=== PATIENT | female | born 1930 | race Hispanic/Latino ===

== ENCOUNTER 2017-11-26 12:23 | Emergency (ER) | payer MEDICARE, MEDICAID ==
--- NOTE | 2017-11-26 13:33 | RAD ---
RIGHT HIP 2 VIEWS: HISTORY: Injury, fall, right hip pain. FINDINGS/IMPRESSION: No fracture or dislocation is identified. POS: JAY
[2017-11-26] MEDS ORDERED: traMADol HCl 50 MG TAB ONE (15:52)
== END 2017-11-26 16:22 | disposition home or self-care (01) ==
LOC: ERS 12:23
DX: S70.01XA Contusion of right hip, initial encounter (principal); K21.9 Gastro-esophageal reflux disease without esophagitis; D50.0 Iron deficiency anemia secondary to blood loss (chronic); I10 Essential (primary) hypertension; F41.9 Anxiety disorder, unspecified; F32.9 Major depressive disorder, single episode, unspecified; I48.91 Unspecified atrial fibrillation; E11.39 Type 2 diabetes mellitus with other diabetic ophthalmic complication; H40.9 Unspecified glaucoma; M81.0 Age-related osteoporosis without current pathological fracture; W07.XXXA Fall from chair, initial encounter

== ENCOUNTER 2018-01-14 01:16 | Inpatient (IN) | payer MEDICARE, OTHER ==
[2018-01-14 02:11] LABS: #Eosinphils 0.2 thou/uL (0.0-0.7); #Lymphocytes 1.4 thou/uL (1.20-3.40); #Monocytes 0.3 thou/uL (0.11-0.59); %Basophils 0.2 % (0.0-1.0); %Eosinophils 2.2 % (0.0-10.0); %Lymphocytes 17.8 % (21.0-51.0); %Neutrophils 75.8 % (42.0-75.0); Hemoglobin 11.1 g/dL (12.0-16.0); Mean Corpuscular HGB CONC 34.6 g/dL (32.0-36.0); Mean Corpuscular Hemoglobin 33.6 pg (27.0-31.0); Mean Corpuscular Volume 97.1 fl (81.0-99.0); Mean Platelet Volume 8.1 fL (7.4-10.4); Platelet Count 218 thou/uL (130-400); RBC Distribution Width 13.9 % (11.5-14.5); Red Blood Cell (RBC) Count 3.31 mill/uL (4.20-5.40); White Blood Cell (WBC) Count 7.9 thou/uL (4.8-10.8)
[2018-01-14 02:25] LABS: ALT (SGPT) 14 U/L (8-55); AST (SGOT) 21 U/L (5-34); Albumin 3.7 g/dL (3.4-4.8); Alkaline Phosphatase 140 U/L (40-150); Anion Gap 12 mmol/L (10-20); BUN (Urea Nitrogen) 20 mg/dL (9.8-20.1); Bilirubin, Total 0.6 mg/dL (0.2-1.2); CK (CPK) 57 U/L (29-168); Calc. Creatinine Clearance 0 mL/min (70-130); Calcium 9.5 mg/dL (7.8-10.44); Carbon Dioxide 28 mmol/L (23-31); Chloride 93 mmol/L (98-107); Estimated GFR-MDRD 86; Globulin 3.7 g/dL (2.4-3.5); Glucose 126 mg/dL (83-110); Protein, Total 7.4 g/dL (6.0-8.3); Sodium 129 mmol/L (136-145)
[2018-01-14 02:28] LABS: CKMB 1.3 ng/mL (0-6.6)
[2018-01-14] MEDS ORDERED: Piperacillin/Tazobactam 4.5 GM in Sodium Chloride 0.9% 100 ML IVPB SCH (03:30)
[2018-01-14] MEDS ORDERED: Acetaminophen 325 MG TAB ONE (04:56)
[2018-01-14] MEDS ORDERED: Dextrose 50% Abboject 50 ML SYRINGE SLOW IVP PRN (05:01)
[2018-01-14] MEDS ORDERED: HYDROcodone/Acetaminophen 7.5/325 mg Tablet PO PRN (05:01)
[2018-01-14] MEDS ORDERED: Ondansetron ODT 4 MG TAB PO PRN (05:01)
[2018-01-14] MEDS ORDERED: Dextrose 5% in Water 1,000 ML IV PRN (05:01)
[2018-01-14] MEDS ORDERED: HumaLOG 300 UNITS/3 ML VIAL SC PRN (05:01)
--- NOTE | 2018-01-14 05:50 | HP ---
CHIEF COMPLAINT: Fevers. HISTORY OF PRESENT ILLNESS: The patient is an 87-year-old female who currently resides at a [facility] due to her debility, she presents after being found to have a fever of 101 and 102 by the [facility] staff. The patient also complained of a cough with some sputum production, otherwise she denied an y other symptoms other than fever and productive cough. She does not have any shortness of breath or chest pain. PAST MEDICAL HISTORY: Patient is significant for type 2 diabetes and hyperlipidemia as well as bladd er incontinence. PAST SURGICAL HISTORY: Patient has had prior cholecystectomy as well as a bladder sling procedure. SOCIAL HISTORY: Negative tobacco or alcohol use. She currently lives at [facility]. REVIEW OF SYSTEMS: Please see HPI. Rest of 14-point review of system is negative. FAMILY HISTORY: Reviewed and noncontributory. LABORATORY DATA AND X-RAY FINDINGS: CBC: White count 7.9, H&H is 11 and 32 with platelet of 218. S odium is 129, potassium 4.0, chloride 93, bicarbonate 28, BUN 20, creatinine 0.6. Chest x-ray that s hows some bilateral lower lobe infiltrates. PHYSICAL EXAMINATION: VITAL SIGNS: Blood pressure 118/62, pulse 105, respirations 20. The patient satting 99% on room air , T-max is 98. GENERAL: Alert and oriented x3, no acute distress. HEENT: Pupils equal, round, react to light and accommodation. Extraocular muscles intact. TMs are clear. No erythema in throat. NECK: No JVD, no lymphadenopathy. CARDIOVASCULAR: Regular rate and rhythm. LUNGS: With very faint wheeze at the bases. ABDOMEN: Positive bowel sounds, soft, nontender, nondistended. EXTREMITIES: No clubbing, cyanosis or edema. ASSESSMENT AND PLAN: 1. Hospital-acquired pneumonia. Continue on Zosyn per guidelines. Continue with symptom control. 2. Type 2 diabetes. Continue on metformin and insulin sliding scale. 3. Hyperlipidemia. Continue Lipitor. 4. Bladder spasms. Continue on oxybutynin. 5. Code status: The patient is full code.
[2018-01-14 06:24] VITALS: BMI 25.3
[2018-01-14] MEDS: Aspirin 81 mg Enteric Coated Tablet PO SCH (08:04)
[2018-01-14] MEDS: Sucralfate 1 GM TAB PO SCH ×4 (08:04→21:07)
[2018-01-14] MEDS: metFORMIN 500 MG TAB PO SCH ×2 (08:05→17:23)
[2018-01-14] MEDS: Lorazepam 0.5 MG TAB PO SCH ×2 (08:05→21:07)
[2018-01-14] MEDS: guaiFENesin ER 600 MG TAB PO SCH ×2 (08:05→21:07)
[2018-01-14] MEDS: Oxybutynin ER 5 MG TAB PO SCH (08:05)
[2018-01-14] MEDS: Enoxaparin Sodium 30 MG/0.3 ML SYRINGE SC SCH (08:15)
--- NOTE | 2018-01-14 09:01 | RAD ---
CHEST 1 VIEW: HISTORY: Dyspnea. Fever. COMPARISON: 12/13/16. FINDINGS: The cardiac silhouette is magnified by projection. Pulmonary vasculature is upper limits of normal. Coarsened interstitial markings throughout each lung have progressed since the prior study. Right h emidiaphragm remains slightly elevated. Mediastinum is midline. No evidence of pneumothorax. IMPRESSION: Worsening bilateral interstitial disease, favored to represent a chronic process. POS: [facility]
[2018-01-14] MEDS: Piperacillin/Tazobactam 4.5 GM in Sodium Chloride 0.9% 100 ML IVPB SCH ×3 (12:16→21:13)
[2018-01-14] MEDS: Acetaminophen 325 MG TAB PO PRN (18:38)
[2018-01-14] MEDS: Atorvastatin Calcium 10 MG TAB PO SCH (21:07)
[2018-01-15] MEDS: Piperacillin/Tazobactam 4.5 GM in Sodium Chloride 0.9% 100 ML IVPB SCH ×4 (04:14→21:05)
[2018-01-15 05:55] LABS: #Eosinphils 0.2 thou/uL (0.0-0.7); #Lymphocytes 0.7 thou/uL (1.20-3.40); #Monocytes 0.4 thou/uL (0.11-0.59); #Neutrophils 5.3 thou/uL (1.40-6.50); %Basophils 0.2 % (0.0-1.0); %Eosinophils 3.7 % (0.0-10.0); %Lymphocytes 9.8 % (21.0-51.0); %Monocytes 5.6 % (0.0-10.0); %Neutrophils 80.7 % (42.0-75.0); Mean Corpuscular HGB CONC 32.1 g/dL (32.0-36.0); Mean Corpuscular Hemoglobin 31.4 pg (27.0-31.0); Mean Corpuscular Volume 97.8 fl (81.0-99.0); Platelet Count 223 thou/uL (130-400); RBC Distribution Width 13.7 % (11.5-14.5); Red Blood Cell (RBC) Count 3.51 mill/uL (4.20-5.40); White Blood Cell (WBC) Count 6.6 thou/uL (4.8-10.8)
[2018-01-15 06:26] LABS: Anion Gap 13 mmol/L (10-20); BUN (Urea Nitrogen) 13 mg/dL (9.8-20.1); Calc. Creatinine Clearance 60 mL/min (70-130); Calcium 9.1 mg/dL (7.8-10.44); Carbon Dioxide 24 mmol/L (23-31); Chloride 97 mmol/L (98-107); Estimated GFR-MDRD Greater than 90; Glucose 89 mg/dL (83-110); Potassium 3.9 mmol/L (3.5-5.1); Sodium 130 mmol/L (136-145)
[2018-01-15] MEDS: metFORMIN 500 MG TAB PO SCH ×2 (10:20→16:59)
[2018-01-15] MEDS: Lorazepam 0.5 MG TAB PO SCH ×2 (10:20→21:06)
[2018-01-15] MEDS: Sucralfate 1 GM TAB PO SCH ×4 (10:20→21:06)
[2018-01-15] MEDS: guaiFENesin ER 600 MG TAB PO SCH ×2 (10:20→21:06)
[2018-01-15] MEDS: Aspirin 81 mg Enteric Coated Tablet PO SCH (10:21)
[2018-01-15] MEDS: Enoxaparin Sodium 30 MG/0.3 ML SYRINGE SC SCH (10:21)
[2018-01-15] MEDS: Oxybutynin ER 5 MG TAB PO SCH (12:38)
--- NOTE | 2018-01-15 15:56 | PDOC.PN ---
- Subjective Encounter Start Date: 01/15/18 Encounter Start Time: 16:34 Subjective: No new complaints -: No active events overnight. - Objective Resuscitation Status: Resuscitation Status FULL:Full Resuscitation MAR Reviewed: Yes Vital Signs & Weight: Vital Signs (12 hours) Temp Pulse Resp BP Pulse Ox 01/15/18 12:00 97.8 F 70 18 135/75 95 01/15/18 08:00 98.0 F 87 20 97 01/15/18 07:45 98.0 F 87 20 136/78 97 Weight Weight 121 lb 4.068 oz I&O: 01/14/18 01/15/18 01/16/18 06:59 06:59 06:59 Intake Total 1190 Balance 1190 Result Diagrams: 01/15/18 05:13 01/15/18 05:13 Additional Labs: Accuchecks 01/15/18 01/15/18 01/15/18 11:42 05:44 02:18 POC Glucose 106 94 100 01/14/18 16:27 POC Glucose 107 Phys Exam - Physical Examination Constitutional: NAD HEENT: PERRLA, moist MMs, sclera anicteric Neck: supple, full ROM Respiratory: no wheezing, no rales, no rhonchi, clear to auscultation bilateral Cardiovascular: RRR, no significant murmur, no rub Gastrointestinal: soft, non-tender, no distention, positive bowel sounds Musculoskeletal: no edema, pulses present Neurological: non-focal, moves all 4 limbs Psychiatric: normal affect Deviation from normal: AO x 2 (person and place) Skin: no rash, normal turgor Dx/Plan (1) Pneumonia Code(s): J18.9 - PNEUMONIA, UNSPECIFIED ORGANISM Status: Acute Qualifiers: Pneumonia type: due to unspecified organism Laterality: bilateral Lung location: lower lobe of lung Qualified Code(s): J18.9 - Pneumonia, unspecified organism Comment: On antibiotics. Pt has chronic fibrotic interstitial disease Will continue ABx and monitor. Will need pulm f/u (2) Chronic respiratory failure Code(s): J96.10 - CHRONIC RESPIRATORY FAILURE, UNSP W HYPOXIA OR HYPERCAPNIA Status: Chronic Qualifiers: Respiratory failure complication: hypoxia Plan: As above (3) DM type 2 (diabetes mellitus, type 2) Status: Chronic Qualifiers: Diabetes mellitus complication status: without complication Diabetes mellitus intermission coordinator insulin use: without longterm use Qualified Code(s): E11.9 - Type 2 diabetes mellitus without complications Comment: Controlled and at goal. (4) Hypertension Code(s): I10 - ESSENTIAL (PRIMARY) HYPERTENSION Status: Chronic Qualifiers: Hypertension type: essential hypertension Comment: At goal. - Plan cont current plan of care, continue antibiotics, DVT proph w/lovenox * .
[2018-01-15] MEDS: Atorvastatin Calcium 10 MG TAB PO SCH (21:06)
[2018-01-15] MEDS: HYDROcodone/Acetaminophen 5/325 mg Tablet PO PRN (21:13)
[2018-01-16] MEDS: Piperacillin/Tazobactam 4.5 GM in Sodium Chloride 0.9% 100 ML IVPB SCH ×4 (03:20→20:56)
[2018-01-16 05:45] LABS: #Eosinphils 0.4 thou/uL (0.0-0.7); #Lymphocytes 0.9 thou/uL (1.20-3.40); #Monocytes 0.4 thou/uL (0.11-0.59); #Neutrophils 3.6 thou/uL (1.40-6.50); %Basophils 0.2 % (0.0-1.0); %Eosinophils 7.7 % (0.0-10.0); %Lymphocytes 17.4 % (21.0-51.0); %Monocytes 6.9 % (0.0-10.0); %Neutrophils 67.8 % (42.0-75.0); Mean Corpuscular HGB CONC 32.5 g/dL (32.0-36.0); Mean Corpuscular Hemoglobin 31.5 pg (27.0-31.0); Mean Platelet Volume 7.7 fL (7.4-10.4); Platelet Count 229 thou/uL (130-400); RBC Distribution Width 13.6 % (11.5-14.5); White Blood Cell (WBC) Count 5.4 thou/uL (4.8-10.8)
[2018-01-16 06:28] LABS: Anion Gap 9 mmol/L (10-20); BUN (Urea Nitrogen) 16 mg/dL (9.8-20.1); Calc. Creatinine Clearance 55 mL/min (70-130); Calcium 9.1 mg/dL (7.8-10.44); Carbon Dioxide 29 mmol/L (23-31); Chloride 94 mmol/L (98-107); Estimated GFR-MDRD 89; Glucose 84 mg/dL (83-110); Potassium 3.8 mmol/L (3.5-5.1); Sodium 128 mmol/L (136-145)
[2018-01-16] MEDS: Lorazepam 0.5 MG TAB PO SCH ×2 (09:34→20:57)
[2018-01-16] MEDS: guaiFENesin ER 600 MG TAB PO SCH ×2 (09:34→20:57)
[2018-01-16] MEDS: Oxybutynin ER 5 MG TAB PO SCH (09:34)
[2018-01-16] MEDS: Sucralfate 1 GM TAB PO SCH ×4 (09:34→20:57)
[2018-01-16] MEDS: metFORMIN 500 MG TAB PO SCH ×2 (09:34→16:08)
[2018-01-16] MEDS: Aspirin 81 mg Enteric Coated Tablet PO SCH (09:34)
[2018-01-16] MEDS: Enoxaparin Sodium 30 MG/0.3 ML SYRINGE SC SCH (09:35)
--- NOTE | 2018-01-16 11:26 | PDOC.PN ---
- Subjective Encounter Start Date: 01/16/18 Encounter Start Time: 11:29 Subjective: No acute events overnight -: No complaints today- breathing better. - Objective Resuscitation Status: Resuscitation Status FULL:Full Resuscitation MAR Reviewed: Yes Vital Signs & Weight: Vital Signs (12 hours) Temp Pulse Resp BP Pulse Ox 01/16/18 07:54 97.8 F 85 20 96 01/16/18 07:53 97.8 F 85 20 135/69 96 Weight Weight 121 lb 4.068 oz I&O: 01/15/18 01/16/18 01/17/18 06:59 06:59 06:59 Intake Total 1190 1200 Balance 1190 1200 Result Diagrams: 01/16/18 05:17 01/16/18 05:17 Additional Labs: Accuchecks 01/16/18 01/15/18 01/15/18 04:59 20:11 16:06 POC Glucose 103 101 103 01/15/18 11:42 POC Glucose 106 Phys Exam - Physical Examination Constitutional: NAD HEENT: PERRLA, moist MMs, sclera anicteric Respiratory: no wheezing, clear to auscultation bilateral bronchial BS b/l Cardiovascular: RRR, no significant murmur, no rub Gastrointestinal: soft, non-tender, no distention, positive bowel sounds Musculoskeletal: no edema, pulses present Psychiatric: normal affect Deviation from normal: AO x 2 Skin: no rash, normal turgor Dx/Plan (1) Pneumonia Code(s): J18.9 - PNEUMONIA, UNSPECIFIED ORGANISM Status: Acute Qualifiers: Pneumonia type: due to unspecified organism Laterality: bilateral Lung location: lower lobe of lung Qualified Code(s): J18.9 - Pneumonia, unspecified organism Comment: Imptoving Remains on antibiotics pending blood cx results. Negative so far. Pt has chronic fibrotic interstitial disease Will continue ABx and monitor. Will need pulm f/u (2) Chronic respiratory failure Code(s): J96.10 - CHRONIC RESPIRATORY FAILURE, UNSP W HYPOXIA OR HYPERCAPNIA Status: Chronic Qualifiers: Respiratory failure complication: hypoxia Comment: Stable. (3) DM type 2 (diabetes mellitus, type 2) Status: Chronic Qualifiers: Diabetes mellitus complication status: without complication Diabetes mellitus terminal manager insulin use: without terminal manager use Qualified Code(s): E11.9 - Type 2 diabetes mellitus without complications Comment: Controlled and at goal. (4) Hypertension Code(s): I10 - ESSENTIAL (PRIMARY) HYPERTENSION Status: Chronic Qualifiers: Hypertension type: essential hypertension Comment: At goal. - Plan cont current plan of care, continue antibiotics Likely d/c to NH tomorrow. * .
--- NOTE | 2018-01-16 14:26 | PQF ---
YASMEENOSEAS OLADIPO [id number] [id number] CLINICAL DOCUMENTATION IMPROVEMENT CLARIFICATION FORM: ICD-10 Updated PLEASE DO AN ADDENDUM TO THE PROGRESS NOTE WITH ANY DOCUMENTATION UPDATES OR ADDITIONS AND CARRY THROUGH TO DC SUMMARY. THANK YOU. DATE: 01-16-18 ATTN: DR. MORGAN Please exercise your independent, professional judgment in responding to the clarification form. Clinical indicators are provided on the bottom of this form for your review Please check appropriate box(s): [ x ] Empirically treating Gram Negative Pneumonia [ ] Empirically treating Anaerobic Pneumonia [ ] Pneumonia secondary to (specify organism / underlying disease) [ ] Simple Pneumonia (community acquired - nosocomial) [ ] Pneumonia of unknown etiology [ ] Other diagnosis [ ] Unable to determine For continuity of documentation, please document condition throughout progress notes and discharge summary. Thank You. CLINICAL INDICATORS - SIGNS / SYMPTOMS / LABS H&P: TEMP 102 AT NH; COUGH; [facility]-ACQUIRED PNA PN 2-: LOWER LOBE PNA - UNSP ORGANISM; RISK FACTORS H&P: LIVES IN NH PN 2-19 CHRONIC HYPOXIC RESP FAILURE W/ CHRONIC FIBROTIC INTERSTITIAL DX TREATMENTS: ER: LEVAQUIN IV 01-14 MAR: ZOSYN 01-14 / 01-15 / 01-16 THANK YOU, CHYNA (This form is maintained as a part of the permanent medical record) 2014 [employer]. All Rights Reserved Chyna Martinez RN, BS [email or web address] [facility]
[2018-01-16] MEDS: HYDROcodone/Acetaminophen 5/325 mg Tablet PO PRN (17:14)
[2018-01-16] MEDS: Atorvastatin Calcium 10 MG TAB PO SCH (20:57)
[2018-01-16] MEDS: Acetaminophen 325 MG TAB PO PRN (20:57)
[2018-01-17] MEDS: Piperacillin/Tazobactam 4.5 GM in Sodium Chloride 0.9% 100 ML IVPB SCH ×2 (04:05→09:20)
[2018-01-17 04:41] LABS: #Basophils 0.1 thou/uL (0.0-0.2); #Eosinphils 0.5 thou/uL (0.0-0.7); #Lymphocytes 1.1 thou/uL (1.20-3.40); #Monocytes 0.5 thou/uL (0.11-0.59); #Neutrophils 3.8 thou/uL (1.40-6.50); %Basophils 0.9 % (0.0-1.0); %Eosinophils 7.8 % (0.0-10.0); %Lymphocytes 18.7 % (21.0-51.0); %Monocytes 7.9 % (0.0-10.0); %Neutrophils 64.7 % (42.0-75.0); Hemoglobin 11.5 g/dL (12.0-16.0); Mean Corpuscular HGB CONC 34.5 g/dL (32.0-36.0); Mean Corpuscular Hemoglobin 33.4 pg (27.0-31.0); Mean Corpuscular Volume 96.7 fl (81.0-99.0); Mean Platelet Volume 7.9 fL (7.4-10.4); Platelet Count 244 thou/uL (130-400); RBC Distribution Width 13.4 % (11.5-14.5); Red Blood Cell (RBC) Count 3.46 mill/uL (4.20-5.40); White Blood Cell (WBC) Count 5.8 thou/uL (4.8-10.8)
[2018-01-17 04:51] LABS: Anion Gap 13 mmol/L (10-20); BUN (Urea Nitrogen) 16 mg/dL (9.8-20.1); Calc. Creatinine Clearance 57 mL/min (70-130); Calcium 9.3 mg/dL (7.8-10.44); Carbon Dioxide 27 mmol/L (23-31); Chloride 92 mmol/L (98-107); Estimated GFR-MDRD Greater than 90; Glucose 90 mg/dL (83-110); Potassium 3.8 mmol/L (3.5-5.1); Sodium 128 mmol/L (136-145)
[2018-01-17] MEDS: Lorazepam 0.5 MG TAB PO SCH (09:08)
[2018-01-17] MEDS: Enoxaparin Sodium 30 MG/0.3 ML SYRINGE SC SCH (09:08)
[2018-01-17] MEDS: Oxybutynin ER 5 MG TAB PO SCH (09:08)
[2018-01-17] MEDS: Sucralfate 1 GM TAB PO SCH (09:08)
[2018-01-17] MEDS: Aspirin 81 mg Enteric Coated Tablet PO SCH (09:08)
[2018-01-17] MEDS: guaiFENesin ER 600 MG TAB PO SCH (09:08)
[2018-01-17] MEDS: metFORMIN 500 MG TAB PO SCH (09:08)
[2018-01-17 11:33] VITALS: BP 143/63; TEMP 97.6
--- NOTE | 2018-01-17 22:28 | DIS ---
DATE OF ADMISSION: 01/14/2018 DATE OF DISCHARGE: 01/17/2018 DISCHARGE DIAGNOSES: Pneumonia, type 2 diabetes mellitus, hyperlipidemia, bladder spasms, chronic re spiratory failure, and hypertension. HISTORY OF PRESENT ILLNESS/HOSPITAL COURSE: An 87-year-old senior living resident, who was brought to the hospital after she had a fever of 101 and 102 degrees Fahrenheit by nursing staff. She also had a cough with some sputum production. Otherwise, denied any other symptoms other than fever and prod uctive cough. She did not have any shortness of breath or chest pain. Lab showed a white count of 7 .9, hemoglobin was 11, and platelets 218. Electrolytes were reliably unremarkable. Chest x-ray was done and showed worsening bilateral interstitial disease, few also represented chronic process. The patient, of note has chronic fibrotic interstitial disease. She was admitted for possible gram negat tony pneumonia due to healthcare-associated pneumonia. She was started on broad-spectrum antibiotics and blood cultures were taken. Blood cultures were negative. Influenza A and B antigens were also n egative. She improved with treatment and was saturating well on room air. Blood cultures remained n egative throughout her stay, and she was discharged on p.o. Keflex to her senior living. DISCHARGE MEDICATIONS: Cephalexin 250 mg twice daily, oxybutynin chloride 5 mg daily, alendronate so dium 35 mg oral every week, loratadine 10 mg daily, latanoprost 1 drop in each eye at bedtime, metfor min 500 mg twice a day with meals, magnesium hydroxide/aluminum hydroxide/simethicone 10-20 mL orally twice a day as needed, Mucinex 600 mg twice a day, ferrous sulfate 325 mg daily, ascorbic acid 500 m g daily, multivitamin 1 tablet daily, acetaminophen 60 mg every 4 hours as needed for fever, headache , or pain; aspirin 81 mg daily, atorvastatin 10 mg daily, diltiazem 180 mg daily, docusate 100 mg chaitanya ly, calcium carbonate 500 mg 4 times a day as needed for indigestion, pantoprazole 40 mg daily, sucra lfate 1 gram oral 4 times daily, ipratropium/albuterol sulfate 3 mL nebulizer q.4 hours as needed for shortness of breath/wheezing, Humalog 100 units sliding scale for hyperglycemia, ergocalciferol 50,0 00 units oral every week, lorazepam 0.25 mg twice daily, estradiol 1 gram vaginally 3 times a week, f amotidine 20 mg oral daily, magnesium 2250 mg oral twice a day, polyethylene glycol 17 grams oral chaitanya ly, acetaminophen with codeine 1 tablet 3 times a day as needed for pain, loperamide 1 mg daily. PHYSICAL EXAMINATION: She was examined on the day of discharge. VITAL SIGNS: Temperature 97.6 degree Fahrenheit, pulse 83, respiratory rate 16, oxygen saturation 95 % on room air, blood pressure 143/63. GENERAL: Not in acute distress, sitting comfortably in bed. HEENT: PERRLA. Moist mucous membranes. Sclerae are anicteric, not pale. RESPIRATORY: No wheezing, rales, or rhonchi. LUNGS: Bronchial breath sounds bilaterally. CARDIOVASCULAR: Regular rate and rhythm. No significant murmurs, rubs, or gallops. GASTROINTESTINAL: Soft, nontender, nondistended, positive bowel sounds. MUSCULOSKELETAL: No edema or pulses present. PSYCHIATRIC: Normal affect and mood. NEUROLOGIC: Alert and oriented to person and place. SKIN: Warm, dry, well-perfused. No rashes or lesions. LABORATORY DATA: WBC 5.8, hemoglobin 11.5, platelets 244. Sodium 128, potassium 3.8, chloride 92, c arbon dioxide 27, anion gap 13, BUN 16, creatinine 0.6, glucose 90, calcium 9.3. Imaging as noted in HPI/hospital course. CONSULTATIONS: None. CONDITION AT DISCHARGE: Stable and improved. PROCEDURES: None. DIET: Heart healthy, diabetic. CARE GOALS: To follow up with primary care physician within 1 week of discharge for repeat labs. ACTIVITY: To resume as tolerated. TIME OF DISCHARGE: Discharge took 65 minutes including chart review and documentation.
--- NOTE | 2018-02-10 14:22 | EKG ---
Test Reason : EMERGENCY EXAM Blood Pressure : / mmHG Vent. Rate : 091 BPM Atrial Rate : 086 BPM P-R Int : 000 ms QRS Dur : 102 ms QT Int : 334 ms P-R-T Axes : 000 -30 139 degrees QTc Int : 410 ms Atrial fibrillation with premature ventricular or aberrantly conducted complexes Left axis deviation Septal infarct , age undetermined Abnormal ECG Confirmed by JERRELL CLIFTON M.D. ([id number]), newspaper photo editor CIARRA LORENZO ([id number]) on 02/10/2018 2:21:24 PM Referred By: Confirmed By:JERRELL CLIFTON M.D.
== END 2018-01-17 11:23 | DRG 178 ==
LOC: ERS 01:16 → T4-B 04:00
PROVIDERS: ADMIT Hospitalist; ATTEND Hospitalist
DX: J15.6 Pneumonia due to other Gram-negative bacteria (principal); J96.11 Chronic respiratory failure with hypoxia; J84.10 Pulmonary fibrosis, unspecified; E11.9 Type 2 diabetes mellitus without complications; I10 Essential (primary) hypertension; E78.5 Hyperlipidemia, unspecified; N32.89 Other specified disorders of bladder
CPT/HCPCS: 36415; 36416; 71045; 80048; 80053; 82553; 83605; 83880; 84484; 85025; 87040; 87804; 93005; 96365; 96367; J1650; J1956; J2543; J7050

== ENCOUNTER 2018-02-21 17:40 | Observation (INO) | payer MEDICARE, MEDICAID ==
[2018-02-21 18:29] LABS: #Eosinphils 0.4 thou/uL (0.0-0.7); #Lymphocytes 0.9 thou/uL (1.20-3.40); #Monocytes 0.3 thou/uL (0.11-0.59); %Basophils 0.5 % (0.0-1.0); %Eosinophils 7.1 % (0.0-10.0); %Lymphocytes 15.5 % (21.0-51.0); %Monocytes 5.8 % (0.0-10.0); %Neutrophils 71.1 % (42.0-75.0); Hemoglobin 12.4 g/dL (12.0-16.0); Mean Corpuscular HGB CONC 33.7 g/dL (32.0-36.0); Mean Corpuscular Volume 97.8 fl (81.0-99.0); Mean Platelet Volume 7.9 fL (7.4-10.4); Platelet Count 247 thou/uL (130-400); RBC Distribution Width 13.6 % (11.5-14.5); Red Blood Cell (RBC) Count 3.75 mill/uL (4.20-5.40); White Blood Cell (WBC) Count 5.7 thou/uL (4.8-10.8)
[2018-02-21 18:38] LABS: ALT (SGPT) 14 U/L (8-55); AST (SGOT) 21 U/L (5-34); Albumin 3.8 g/dL (3.4-4.8); Alkaline Phosphatase 124 U/L (40-150); Anion Gap 14 mmol/L (10-20); BUN (Urea Nitrogen) 20 mg/dL (9.8-20.1); Bilirubin, Total 0.4 mg/dL (0.2-1.2); CK (CPK) 36 U/L (29-168); Calc. Creatinine Clearance 0 mL/min (70-130); Calcium 9.8 mg/dL (7.8-10.44); Carbon Dioxide 26 mmol/L (23-31); Chloride 95 mmol/L (98-107); Estimated GFR-MDRD 82; Globulin 4.2 g/dL (2.4-3.5); Glucose 103 mg/dL (83-110); Potassium 4.6 mmol/L (3.5-5.1); Sodium 130 mmol/L (136-145)
[2018-02-21 18:43] LABS: CKMB 1.3 ng/mL (0-6.6); Troponin I 0.019 ng/mL (< 0.028)
--- NOTE | 2018-02-21 18:49 | RAD ---
SINGLE VIEW OF THE CHEST: 02/21/18 COMPARISON: 01/14/18 HISTORY: Chest pain. FINDINGS: Single view of the chest shows a cardiomediastinal silhouette which is upper limits of normal in size . There are chronic increased interstitial lung markings. There is stable elevation of the right radhika diaphragm. There is no evidence of consolidation, mass or pleural effusion. IMPRESSION: Stable chronic interstitial lung disease without acute cardiopulmonary process. POS: [facility]
[2018-02-21] MEDS ORDERED: Morphine 4 MG/ML VIAL ONE (19:17)
[2018-02-21] MEDS ORDERED: Ondansetron HCl/PF 4 MG/2 ML Vial ONE (19:18)
[2018-02-21] MEDS ORDERED: Aspirin 325 MG TAB ONE (19:18)
[2018-02-21] MEDS ORDERED: HYDROcodone/Acetaminophen 5/325 mg Tablet ONE (21:52)
[2018-02-21 22:43] LABS: Troponin I 0.016 ng/mL (< 0.028)
[2018-02-21] MEDS ORDERED: Dextrose 50% Abboject 50 ML SYRINGE SLOW IVP PRN (23:23)
[2018-02-21] MEDS ORDERED: hydrALAZINE 20 MG/ML VIAL SLOW IVP PRN (23:23)
[2018-02-21] MEDS ORDERED: HumaLOG 300 UNITS/3 ML VIAL SC PRN ×2 (23:23)
[2018-02-21] MEDS ORDERED: Ondansetron HCl/PF 4 MG/2 ML Vial IVP PRN (23:23)
[2018-02-21] MEDS ORDERED: Ondansetron ODT 4 MG TAB PO PRN (23:23)
[2018-02-21] MEDS ORDERED: Dextrose 5% in Water 1,000 ML IV PRN (23:23)
[2018-02-21] MEDS ORDERED: cloNIDine 0.1 MG TAB PO PRN (23:23)
[2018-02-21] MEDS ORDERED: Acetaminophen 500 MG TAB PO PRN (23:23)
[2018-02-22 02:01] LABS: Troponin I 0.025 ng/mL (< 0.028)
[2018-02-22 02:58] VITALS: BMI 21.9
[2018-02-22] MEDS: HYDROcodone/Acetaminophen 5/325 mg Tablet PO PRN ×2 (04:00→12:34)
--- NOTE | 2018-02-22 04:42 | HP ---
DATE OF ADMISSION: 02/21/2018 PRIMARY CARE PROVIDER: Dr. Camacho. CHIEF COMPLAINT: Chest and back pain. HISTORY OF PRESENT ILLNESS: This is an 87-year-old female, who presents from [facility] where she has been a current resident for the last 7 years. The patient complai ns of left upper shoulder, back and anterior chest pain when taking a breath, turning or coughing. T he patient states she has a pain patch on her back that is changed once a day for some relief of her symptoms. The patient was notably admitted to [facility] recently from 2017 through 01/17/2018 for questionable bilateral pneumonia as well as chronic interstitial lung dis ease. The patient was discharged home on Keflex 250 mg twice daily and given general pulmonary suppo rtive measures. The patient admits to residual cough, which has improved with supportive treatment. The patient denied any specific increasing cough, fever, chills or purulent sputum. The patient sta bianca she has some difficulty ambulating after a stroke and generally mobilizes in a wheelchair. The p atient localizes pain in the shoulder region as well as upper back, rated initially at 6/10, currentl y 3/10. The patient states the pain is worse with moving, coughing or turning her torso[facility] general evaluation including a screening metabolic survey with tro ponin I negative x2. The patient denies any strong history of coronary artery disease or previous in tervention for coronary artery disease. The patient currently is comfortable lying on the gurney in the emergency room. PAST MEDICAL HISTORY: 1. History of chronic respiratory failure with hypoxemia without chronic oxygen therapy. 2. Status post recent suspected community-acquired pneumonia. 3. Question of chronic interstitial lung disease. 4. History of aspiration pneumonia. 5. History of Dunbar's palsy. 6. Hypertension. 7. Osteoarthritis. 8. 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 9. Diabetes mellitus, type 2. 10. Gastroesophageal reflux disease. 11. History of glaucoma. 12. Nonambulatory status. 13. History of dysphagia, status post cerebrovascular accident. PAST SURGICAL HISTORY: 1. Status post cholecystectomy. 2. Status post-bladder suspension. CURRENT MEDICATIONS: 1. Tylenol 650 mg 1 tab p.o. q.6 hours p.r.n. 2. Alendronate 35 mg q.7 days. 3. Vitamin C 500 mg p.o. daily. 4. Enteric-coated aspirin 81 mg 1 tab p.o. daily. 5. Lipitor 10 mg p.o. at bedtime. 6. Calcium carbonate 500 mg p.o. q.i.d. 7. Diltiazem CD 180 mg 1 tab p.o. daily. 8. Vitamin D2 of 50,000 units p.o. q. 7 days. 9. Estradiol 0.01% one gram vaginally 3 times per week. 10. Pepcid 20 mg p.o. b.i.d. 11. Feosol 325 mg p.o. daily. 12. Humalog sliding scale. 13. DuoNeb 3 mL nebulized q.i.d. p.r.n. 14. Xalatan 0.005% one drop to each eye at bedtime. 15. Lorazepam 0.5 mg half a tab p.o. b.i.d. 16. Magnesium 250 mg p.o. b.i.d. 17. Metformin 500 mg p.o. b.i.d. 18. Multivitamin 1 tab p.o. daily. 19. Oxybutynin 5 mg p.o. daily. 20. Protonix 40 mg 1 tab p.o. daily. 21. Sucralfate 1 gram p.o. q.i.d. ALLERGIES: No known drug allergies. FAMILY HISTORY: Positive for diabetes in multiple family members. SOCIAL HISTORY: The patient currently resides at [facility] x7 years. No cu rrent alcohol, tobacco or illicit drug use. Mobilization in a wheelchair. High fall risk precaution s. Accompanied by her 2 daughters and one son in the emergency room. REVIEW OF SYSTEMS: The following complete review of systems was negative, unless otherwise mentioned in the HPI or below: Constitutional: Weight loss or gain, ability to conduct usual activities. Sk in: Rash, itching. Eyes: Double vision, pain. ENT/Mouth: Nose bleeding, neck stiffness, pain, te nderness. Cardiovascular: Palpitations, dyspnea on exertion, orthopnea. Respiratory: Shortness of breath, wheezing, cough, hemoptysis, fever or night sweats. Gastrointestinal: Poor appetite, abdom inal pain, heartburn, nausea, vomiting, constipation, or diarrhea. Genitourinary: Urgency, frequenc y, dysuria, nocturia. Musculoskeletal: Pain, swelling. Neurologic/Psychiatric: Anxiety, depressio n. Allergy/Immunologic: Skin rash, bleeding tendency. Otherwise negative except as stated per HPI. PHYSICAL EXAMINATION: VITAL SIGNS: Currently, blood pressure 131/63, pulse 82, respiratory rate 14, temperature 98.1 degre es Fahrenheit, O2 saturation 94% on room air. GENERAL APPEARANCE: This is an 87-year-old female, alert and oriented x3, pleasant, respons tony, talkative, in no acute distress. HEENT: Pupils are equal, round, and reactive to light and accommodation. Extraocular muscles are in tact. No scleral icterus, no conjunctival injection. Nares patent. OP is clear. Teeth in good rep air. NECK: Supple, no cervical adenopathy, no thyromegaly, no carotid bruits, no JVD appreciated. Cervic al spine with full active and passive range of motion. CHEST: Lungs are clear to auscultation bilaterally. CARDIOVASCULAR: S1, S2, without noted murmur. ABDOMEN: Flat, soft, nontender, nondistended. Bowel sounds are positive in all four quadrants. The re is no hepatosplenomegaly, no abdominal bruits, no rebound or guarding appreciated. EXTREMITIES: Warm and dry with fair turgor. No clubbing, cyanosis or asymmetric edema appreciated. Pulses palpable distally at the dorsalis pedis, posterior tibial, and popliteal arteries bilaterally . Capillary refill less than 2 seconds. NEUROLOGIC: Cranial nerves II-XII are grossly intact. PERTINENT LABORATORY AND X-RAY FINDINGS: Sodium 130, potassium 4.6, chloride 95, CO2 of 26, BUN 20, creatinine 0.68, estimated GFR of 82, glucose 103, calcium 9.8. LFTs within normal limits. Troponin I negative x2. Albumin 3.8. CBC showed a white blood cell count of 5.7, hemoglobin 12.4, hematocri t 36.7, platelet count 247. Portable chest x-ray dated 02/21/2018 showed no acute cardiopulmonary pr ocess. Chronic interstitial lung changes noted. EKG dated 02/21/2018 by my interpretation shows marcos ctional rhythm with heart rates in the 80s. Attenuated R waves noted in the precordial leads. Left axis deviation. No acute ST-T wave changes appreciated. ASSESSMENT AND PLAN: 1. Chest and back pain. The patient will be observed on the telemetry unit. Suspect musculoskeleta l in origin given the patient's history and physical findings. Suspect advanced arthritis and osteop orosis as the underlying etiology. We will complete serial troponins for third rule out. No current evidence to suggest acute coronary syndrome. Pain control as clinically indicated. 2. Hyponatremia. Chronic. We will continue to encourage regular oral intake. Repeat sodium level in the a.m. 3. Diabetes mellitus, type 2. Insulin sliding scale for reflexive coverage. ADA diet with pureed t exture. 4. Hypertension. Resume home antihypertensive regimen and monitor clinical response. 5. Chronic interstitial lung disease. Stable currently. No evidence of acute hypoxia. Continue ge neral pulmonary supportive measures. 6. Prophylaxis. Sequential compression devices while in bed. Pepcid 20 mg p.o. b.i.d. General fal l precautions. 7. Code status is FULL. Surrogate medical decision maker is the patient's daughter.
[2018-02-22 04:55] LABS: Band 4 % (5-11); Eosinophils 7 % (0-10); Hemoglobin 10.7 g/dL (12.0-16.0); Lymphocytes 10 % (21-51); MDiff Complete? YES; Mean Corpuscular HGB CONC 32.5 g/dL (32.0-36.0); Mean Corpuscular Hemoglobin 31.5 pg (27.0-31.0); Mean Corpuscular Volume 96.9 fl (81.0-99.0); Mean Platelet Volume 7.8 fL (7.4-10.4); Monocytes 3 % (0-10); Neutrophil 76 % (42-75); Platelet Count 217 thou/uL (130-400); RBC Distribution Width 13.5 % (11.5-14.5); RBC Morphology Normal; White Blood Cell (WBC) Count 6.5 thou/uL (4.8-10.8)
[2018-02-22 05:07] LABS: Anion Gap 11 mmol/L (10-20); BUN (Urea Nitrogen) 14 mg/dL (9.8-20.1); Calc. Creatinine Clearance 57 mL/min (70-130); Calcium 8.9 mg/dL (7.8-10.44); Carbon Dioxide 27 mmol/L (23-31); Cardiac Risk 2.5 (Less than 4.5); Chloride 96 mmol/L (98-107); Cholesterol 85 mg/dl (< 200 Desired); Estimated GFR-MDRD Greater than 90; Glucose 105 mg/dL (83-110); HDL Cholesterol 34 mg/dL (>60 Neg Risk); LDL Cholesterol, Calculated 37 mg/dL; Potassium 4.1 mmol/L (3.5-5.1); Sodium 130 mmol/L (136-145); Triglycerides 71 mg/dL (Less than 150)
[2018-02-22] MEDS ORDERED: Famotidine 20 MG TAB PO SCH (09:00)
[2018-02-22] MEDS ORDERED: FLU VACC TS2017-18 (>65YR) 0.5 ML SYRINGE IM ONE (09:00)
[2018-02-22] MEDS ORDERED: Aspirin 325 MG TAB PO SCH (09:00)
[2018-02-22] MEDS ORDERED: Ketorolac Tromethamine 30 MG/ML VIAL IVP PRN (09:20)
[2018-02-22] MEDS ORDERED: Benzonatate 100 MG CAP PO PRN (11:20)
[2018-02-22] MEDS ORDERED: Iopamidol 370 76% 100 ML VIAL ONE (13:14)
--- NOTE | 2018-02-22 13:16 | CON ---
DATE OF CONSULTATION: 02/22/2018 HISTORY OF PRESENT ILLNESS: Ms. Romeo is a very pleasant 87-year-old female who comes to [facility] for chest pain, back pain and abdominal pain. She states that for the last 2 days, she womack s noticed pain on the mid to lower abdomen, pain in the mid to upper left chest and pain on the back in between his scapular system. She was brought in for evaluation. She had 3 negative troponins. C ardiology has been consulted for further evaluation of this. She had a CT of the chest back in May of last year. She was found to have calcifications and coronary disease on her left main and her LAD . She was not interested in any invasive interventions at that time. On my evaluation today, she te lls me she is not interested in any interventions still. She only wants to be able to sleep. She wa nts her antianxiety medication that she normally takes at night, half a tablet of the, I think it is Midazolam that she uses to help her sleep. She continues to have pain. She says it is worse when e wakes up, better throughout the day. Currently, she has 3/10 pain on all [address] of the chest that she had last year also showed that she had multiple pulmonary nodules that would suggest s he had either isolated nodules versus metastatic disease, which was felt to be less likely. PAST MEDICAL HISTORY: 1. Chronic obstructive pulmonary disease. 2. Recent community-acquired pneumonia. 3. Interstitial lung disease. 4. Dunbar's palsy. 5. Hypertension. 6. Osteoarthritis. 7. Multidrug resistant E. coli on UTIs in the past. 8. Type 2 diabetes. 9. Gastroesophageal reflux disease. 10. Glaucoma. 11. Nonambulatory. 12. 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 13. Cerebrovascular accident. 14. Coronary artery disease as evidenced on the CT that shows calcifications on the LAD and left douglas n. 15. Chronic atrial fibrillation. Last echocardiogram done in 10/2016 showed a normal EF. PAST SURGICAL HISTORY: 1. Cholecystectomy. 2. Bladder suspension. OUTPATIENT MEDICATIONS: Reviewed and unchanged from Dr. Maynard's note on 02/21/2018. ALLERGIES: No known drug allergies. FAMILY HISTORY: Noncontributory. SOCIAL HISTORY: Currently lives at [facility]. No alcohol, tobacco or drugs , wheelchair. High fall risk. REVIEW OF SYSTEMS: A 12 point review of systems was done and is all negative unless stated in the hi story of present illness. PHYSICAL EXAMINATION: VITAL SIGNS: Temperature 98.7, pulse 95, respiration rate 20, satting 98% on 2 liters, blood pressur e 131/70. GENERAL: Awake, alert, oriented x3, in no distress. HEENT: Normocephalic, atraumatic. NECK: Supple. LUNGS: Clear, distant. CARDIOVASCULAR: S1, S2, no S3, S4, no murmurs or rubs. ABDOMEN: Soft, positive bowel sounds. No rebound or guarding. EXTREMITIES: No edema. SKIN: Warm and dry. LABORATORY WORK: Reviewed. CBC was reviewed. Chemistry were reviewed. Sodium is 130, potassium 4. 1. GFR greater than 90. Troponin is negative x3. Albumin of 3.8. Triglycerides of 71. cholestero l of 85, LDL of 37, HDL 34. Chest x-ray on admission showed chronic interstitial lung disease without any acute process. ASSESSMENT AND PLAN: 1. Chest pain: Certainly this could be related to angina; however, it would be very atypical as her pain is abdominal, chest and back. She is not having an acute coronary syndrome as evidenced by her unchanged EKG and negative troponins. She does have coronary artery disease by a CT done last year that showed left main and LAD atherosclerosis and calcifications. I spoke with her about possibly do ing a heart catheterization. She is not interested in anything invasive at this time. She just want s her pill to help her sleep and for her anxiety. 2. Other cardiac causes for chest pain needs to be ruled out as she did have several nodules in her lungs on CT 8 months ago. I would favor repeating a CT of the chest to make sure these are not enamorado ed in any way suggesting metastatic disease. 3. Coronary artery disease. Will need a statin and an aspirin which she is already taking. Thank you for letting us participate in the care of your patient.
--- NOTE | 2018-02-22 15:36 | CT ---
CT OF THE THORAX WITH IV CONTRAST: 02/22/18 INDICATION: History of chest pain with lung nodule. COMPARISON: Prior exam dated 06/22/17. FINDINGS: There is scattered interstitial fibrotic change with honeycombing is largely stable. There is a pricilla cified granuloma in the right lower lobe. There is a calcified lymph node within the right infrahilar region. Mildly prominent lymph nodes with in the mediastinum are stable. There is some fluctuating nodular density seen wtihin both lungs which may reflect areas of fluctuati ng mucus plugging. No suspicious pulmonary nodules identified. There are scattered vascular calcifications. The visualized upper abdomen demonstrates no definite ac tribe osseous abnormality. There is diffuse osteopenia. IMPRESSION: 1. Stable linear interstitial fibrotic change with areas of peripheral honeycombing seen predomi nantly in a basilar distribution can be seen with entities such as NSIP or UIP. 2. Fluctuating soft tissue densities within the lung parenchyma likely reflecting areas of mil d mucus plugging. No suspicious pulmonary nodule is evident. 3. Mildly prominent lymph nodes within the mediastinum are stable. POS: [facility]
[2018-02-22 16:29] VITALS: BP 136/67; TEMP 97.8
--- NOTE | 2018-02-23 06:41 | DIS ---
DATE OF ADMISSION: 02/21/2018 DATE OF DISCHARGE: 02/22/2018 DISCHARGE DIAGNOSES: 1. Musculoskeletal chest pain. 2. Chronic cough. 3. Interstitial lung disease. 4. Chronic obstructive pulmonary disease without acute exacerbation. 5. Recent community-acquired pneumonia. 6. Cerebrovascular disease with ischemic stroke in the recent past. She has residual dysphagia, rig ht Dunbar's palsy and left-sided weakness. 7. Diabetes mellitus type 2. 8. Gastroesophageal reflux disease. 9. Glaucoma. 10. Nonambulatory status. 11. History of multidrug resistant E. coli infections. 12. Essential hypertension. 13. Osteoarthritis. 14. Chronic atrial fibrillation. CONSULTATION: Dr. Ulisses Marino with Cardiology. PROCEDURES: None. HISTORY AND PHYSICAL: Ms. Romeo is an 87-year-old female, a new resident at [facility] who was sent to the emergency department by her primary care physician, Florina Duarte for chest and back pain. She has been having a chronic cough and has developed pain to the left lower sternal border with radiation to her shoulder and upper back. There was concern o f heart issue, so she was sent to the emergency department for evaluation. There, her workup was negative, EKG was unchanged, and we were subsequently called for further workup and evaluation. HOSPITAL COURSE: The patient was seen and examined by Dr. Maynard. She was placed in observation. Ser ial cardiac murmurs were obtained and pain medicines were ordered. Overnight, she did well. She continued to have pain with cough, deep inspiration and palpation of he r chest wall. This improved with Toradol and hydrocodone. Cardiac biomarkers remained negative. Ch est pain was reproduced with palpation of the chest wall and again deep inspiration. Cardiology cons ulted and Dr. Marino did see her and recommended no further cardiac workup. I did recommend CT scan of the chest to follow up on her previous interstitial lung disease and nodules to make sure there wa s no evidence of metastatic disease. CT scan was done that was unremarkable and she was stable for d ischarge with outpatient followup. The patient was seen and examined on the day of discharge. Discharge plan and disposition was discus sed with the patient [id number] at the bedside. DISCHARGE MEDICATIONS: 1. Tylenol 650 mg p.o. q.4 hours p.r.n. 2. Tylenol No. 3 one tablet p.o. t.i.d. as needed, increased to 1-2 tablets as needed for moderate t o severe pain. 3. Fosamax 35 mg p.o. weekly. 4. Vitamin C 500 mg daily. 5. Aspirin 81 mg daily. 6. Lipitor 10 mg p.o. at bedtime. 7. Calcium carbonate 500 mg p.o. q.i.d. p.r.n. 8. Cyanocobalamin 1000 mcg p.o. daily. 9. Natural Tears 2 drops each eye b.i.d. 10. Diltiazem HCL 100 mg p.o. daily. 11. Docusate 100 mg p.o. daily and 100 mg p.o. daily p.r.n. constipation. 12. Vitamin D2 50,000 units p.o. weekly. 13. Estrace 0.01% vaginal 1 gram vaginal 3 times a week as needed for dryness. 14. Pepcid 20 mg p.o. daily. 15. Iron sulfate 325 mg daily. 16. NovoLog sliding scale. 17. Xalatan 1 drop each eye at bedtime at 0.005%. 18. Claritin 10 mg daily. 19. Ativan 0.25 mg p.o. b.i.d. for anxiety. 20. Magnesium 250 mg p.o. b.i.d. 21. Metformin 500 mg p.o. b.i.d. 22. Multivitamin daily. 23. Ditropan 5 mg daily. 24. Protonix 40 mg daily. 25. MiraLax 17 grams p.o. daily. 26. Carafate 1 gram p.o. at bedtime. 27. Trimethoprim 100 mg p.o. q.p.m. for UTI prophylaxis. FOLLOWUP APPOINTMENT: PCP, Dr. Duarte in a week. DISCHARGE DIET: Heart healthy, diabetic, recommended and ordered. DISCHARGE ACTIVITY: Per cardiopulmonary limits. The patient was nonambulatory. DISCHARGE CONDITION: Stable. DISPOSITION: Will be discharged back to [facility] for long-term care.
== END 2018-02-22 17:35 ==
LOC: ERS 17:40 → ERHOLD 21:50 → 2NO 02-22 01:44
PROVIDERS: ADMIT Family Medicine; ATTEND Family Medicine
DX: R07.89 Other chest pain (principal); R05 Cough; J44.9 Chronic obstructive pulmonary disease, unspecified; J18.9 Pneumonia, unspecified organism; I69.391 Dysphagia following cerebral infarction; I69.354 Hemiplegia and hemiparesis following cerebral infarction affecting left non-dominant side; G51.0 Bell's palsy; E11.9 Type 2 diabetes mellitus without complications; K21.9 Gastro-esophageal reflux disease without esophagitis; H40.9 Unspecified glaucoma; I10 Essential (primary) hypertension; I48.2 Chronic atrial fibrillation; M19.90 Unspecified osteoarthritis, unspecified site; R26.89 Other abnormalities of gait and mobility; I25.10 Atherosclerotic heart disease of native coronary artery without angina pectoris; Z90.49 Acquired absence of other specified parts of digestive tract; Z98.890 Other specified postprocedural states
CPT/HCPCS: 71045; 71260; 80048; 80053; 80061; 82550; 82553 ×2; 82962 ×2; 84484 ×3; 85007; 85025; 85027; 93005; 94760 ×2; 96374; 96375 ×2; 99285; G0008; G0378; Q2036; 36415; 36416; 90471; 90682; J1885; J2270; J2405

== ENCOUNTER 2018-04-12 14:04 | Outpatient (CLI) | payer MEDICARE ==
--- NOTE | 2018-04-12 15:01 | RAD ---
TWO VIEWS OF THE CHEST: COMPARISON: 02/21/18. HISTORY: Dyspnea. FINDINGS: Two views of the chest show a normal-size cardiomediastinal silhouette. There are diffuse stable inc reased interstitial lung markings likely secondary to chronic interstitial lung disease. A calcified granuloma projects over the right lower lobe. No consolidation is seen. IMPRESSION: Stable diffuse increased interstitial lung disease. POS: [facility]
== END 2018-04-12 14:05 | disposition home or self-care (01) ==
LOC: RAD 14:04
PROVIDERS: ATTEND Internal Medicine
DX: R06.00 Dyspnea, unspecified (principal); J84.9 Interstitial pulmonary disease, unspecified
CPT/HCPCS: 71046

== ENCOUNTER 2018-10-13 06:06 | Emergency (ER) | payer MEDICARE, MEDICAID ==
[2018-10-13] MEDS ORDERED: Acetaminophen 500 MG TAB ONE (06:44)
[2018-10-13 07:28] LABS: #Eosinphils 0.3 thou/uL (0.0-0.7); #Lymphocytes 1.4 thou/uL (1.20-3.40); #Monocytes 0.5 thou/uL (0.11-0.59); #Neutrophils 3.9 thou/uL (1.40-6.50); %Basophils 0.4 % (0.0-1.0); %Eosinophils 4.5 % (0.0-10.0); %Lymphocytes 23.1 % (21.0-51.0); %Monocytes 8.1 % (0.0-10.0); Mean Corpuscular HGB CONC 32.6 g/dL (32.0-36.0); Mean Corpuscular Hemoglobin 32.1 pg (27.0-31.0); Mean Corpuscular Volume 98.2 fL (78.0-98.0); Mean Platelet Volume 7.6 fL (7.4-10.4); Platelet Count 326 thou/uL (130-400); RBC Distribution Width 13.3 % (11.5-14.5); Red Blood Cell (RBC) Count 3.75 mill/uL (4.20-5.40); White Blood Cell (WBC) Count 6.1 thou/uL (4.8-10.8)
[2018-10-13 07:36] LABS: Bilirubin Negative (Negative); Blood, Urine Negative (Negative); Clarity CLOUDY (Clear); Glucose, Urine (Dipstick) Negative (Negative); Leukocyte Large (Negative); Nitrite Positive (Negative); Protein, Urine (Dipstick) 30 mg/dL (Neg-Trace); Specific Gravity, Urine 1.016 (1.002-1.036)
[2018-10-13 07:39] LABS: Bacteria/HPF 4+ HPF (None Seen); Hyaline Casts/LPF 4-6 HYALINE CAST LPF (0-3 Hyaline); Pathc Cast-AUWi Flag 0.58 (0-2.49); Squamous Epithelial 0-3 HPF (0-3); WBC/HPF 21-50 HPF (0-3)
[2018-10-13] MEDS ORDERED: cefTRIAXone\\ROCEPHIN 1 GM VIAL ONE (07:53)
[2018-10-13 07:57] LABS: ALT (SGPT) Less than 7 U/L (8-55); AST (SGOT) 16 U/L (5-34); Albumin 3.7 g/dL (3.4-4.8); Alkaline Phosphatase 96 U/L (40-150); Anion Gap 12 mmol/L (10-20); BUN (Urea Nitrogen) 12 mg/dL (9.8-20.1); Bilirubin, Total 0.5 mg/dL (0.2-1.2); Calc. Creatinine Clearance 0 mL/min (70-130); Calcium 9.7 mg/dL (7.8-10.44); Carbon Dioxide 26 mmol/L (23-31); Chloride 94 mmol/L (98-107); Estimated GFR-MDRD 85; Globulin 4.3 g/dL (2.4-3.5); Glucose 110 mg/dL (83-110); Potassium 4.4 mmol/L (3.5-5.1); Sodium 128 mmol/L (136-145)
--- NOTE | 2018-10-13 10:31 | RAD ---
PORTABLE CHEST 1 VIEW: Date: 10/13/18 Time: 0640 hours HISTORY: Cough. FINDINGS/IMPRESSION: Comparison made with exam of 04/12/18. Changes of chronic interstitial disease with interval worsening. No lobar consolidation, pneumothorac es, or pleural effusions are seen. There is elevation of the right hemidiaphragm. A calcified granulo ma in the right lower lobe is again noted. There are degenerative changes in the spine. POS: [facility]
--- NOTE | 2018-10-13 10:57 | RAD ---
RADIOGRAPH LUMBAR SPINE 3 VIEWS: Date: 10/13/18 Time: 0643 hours HISTORY: 88-year-old female with severe low back pain. FINDINGS: There is a transition level at the lumbosacral junction. There is a mild kyphodextroscoliosis. Multil evel degenerative disc disease, moderate and severe. Grade I spondylolisthesis at lumbosacral junctio n. Retrolisthesis at two of the levels in the mid and upper lumbar spine. Baastrup's disease througho ut all levels. Mild anterior wedging of several lower thoracic and upper lumbar vertebral bodies of i ndeterminate age, probably chronic. Diffuse osteopenia. Multilevel facet DJD. IMPRESSION: Severe lumbar spopdylosis. SEAN [] POS: [facility]
== END 2018-10-13 09:35 | disposition home or self-care (01) ==
LOC: ERS 06:06
DX: N39.0 Urinary tract infection, site not specified (principal); E11.9 Type 2 diabetes mellitus without complications; K21.9 Gastro-esophageal reflux disease without esophagitis; D50.9 Iron deficiency anemia, unspecified; I10 Essential (primary) hypertension; F41.9 Anxiety disorder, unspecified; F32.9 Major depressive disorder, single episode, unspecified; Z79.899 Other long term (current) drug therapy; Z79.82 Long term (current) use of aspirin; Z79.84 Long term (current) use of oral hypoglycemic drugs
CPT/HCPCS: 36415; 51701; 71045; 72100; 80053; 81003; 81015; 83605; 85025; 87040; 87077; 87086; 87186; 96365; A4353; J0696

== ENCOUNTER 2019-03-05 18:03 | Inpatient (IN) | payer MEDICARE, MEDICAID ==
[2019-03-05 19:09] LABS: #Lymphocytes 0.4 thou/uL (1.20-3.40); #Monocytes 0.4 thou/uL (0.11-0.59); #Neutrophils 7.6 thou/uL (1.40-6.50); %Basophils 0.1 % (0.0-1.0); %Eosinophils 0.4 % (0.0-10.0); %Lymphocytes 5.1 % (21.0-51.0); %Monocytes 4.1 % (0.0-10.0); %Neutrophils 90.4 % (42.0-75.0); Hemoglobin 12.1 g/dL (12.0-16.0); Mean Corpuscular HGB CONC 33.3 g/dL (32.0-36.0); Mean Corpuscular Volume 99.2 fL (78.0-98.0); Mean Platelet Volume 7.2 fL (7.4-10.4); Platelet Count 262 thou/uL (130-400); RBC Distribution Width 12.9 % (11.5-14.5); Red Blood Cell (RBC) Count 3.66 mill/uL (4.20-5.40); White Blood Cell (WBC) Count 8.4 thou/uL (4.8-10.8)
[2019-03-05 19:29] LABS: ALT (SGPT) 8 U/L (8-55); AST (SGOT) 19 U/L (5-34); Albumin 3.8 g/dL (3.4-4.8); Alkaline Phosphatase 102 U/L (40-150); Anion Gap 12 mmol/L (10-20); BUN (Urea Nitrogen) 13 mg/dL (9.8-20.1); Bilirubin, Total 0.7 mg/dL (0.2-1.2); Calc. Creatinine Clearance 0 mL/min (70-130); Calcium 9.7 mg/dL (7.8-10.44); Carbon Dioxide 32 mmol/L (23-31); Chloride 91 mmol/L (98-107); Estimated GFR-MDRD Greater than 90; Globulin 4.4 g/dL (2.4-3.5); Glucose 126 mg/dL (83-110); Potassium 4.2 mmol/L (3.5-5.1); Protein, Total 8.2 g/dL (6.0-8.3); Sodium 131 mmol/L (136-145)
[2019-03-05 19:32] LABS: Bilirubin Negative (Negative); Blood, Urine Small (Negative); Clarity CLOUDY (Clear); Glucose, Urine (Dipstick) Negative (Negative); Leukocyte Trace (Negative); Nitrite Positive (Negative); Protein, Urine (Dipstick) 100 mg/dL (Neg-Trace); Specific Gravity, Urine 1.026 (1.002-1.036)
[2019-03-05 19:35] LABS: Bacteria/HPF 4+ HPF (None Seen); Hyaline Casts/LPF 4-6 HYALINE CAST LPF (0-3 Hyaline); Pathc Cast-AUWi Flag 0.95 (0-2.49); Squamous Epithelial 0-3 HPF (0-3); WBC/HPF 0-3 HPF (0-3)
--- NOTE | 2019-03-05 19:54 | RAD ---
PORTABLE CHEST ONE VIEW: 03/05/19 at 6:53 p.m. HISTORY: Difficulty breathing, tachypnea. FINDINGS/IMPRESSION: Comparison is made with exam of 10/13/18. The heart size is stable. Changes of chronic interstitial disease are again seen bilaterally. Superim posed infiltrates in the lower lung riley may be present. No pneumothoraces are identified. There is continued elevation of the right hemidiaphragm. A calcified granuloma in the right lower lobe is aga in seen. No large pleural effusions are identified. No pneumothoraces are seen. There are degenerative changes in the spine. POS: [facility]
[2019-03-05] MEDS ORDERED: Piperacillin/Tazobactam 3.375 GM VIAL ONE (20:19)
[2019-03-06] MEDS ORDERED: Piperacillin/Tazobactam 3.375 GM VIAL ONE (03:15)
[2019-03-06] MEDS ORDERED: Sodium Chloride 0.9% 1,000 ML IV SCH (03:57)
[2019-03-06] MEDS ORDERED: Ondansetron ODT 4 MG TAB SL PRN (03:57)
[2019-03-06] MEDS ORDERED: Acetaminophen 325 MG TAB PO PRN (03:57)
[2019-03-06] MEDS ORDERED: HYDROcodone/Acetaminophen 5/325 mg Tablet PO PRN ×2 (03:57)
[2019-03-06] MEDS ORDERED: Ondansetron PF 4 MG/2 ML Vial IVP PRN ×2 (03:57→04:23)
[2019-03-06 04:05] VITALS: BMI 24.9
[2019-03-06] MEDS ORDERED: Dextrose 50% Abboject 50 ML SYRINGE SLOW IVP PRN (04:23)
[2019-03-06] MEDS ORDERED: HumaLOG 300 UNITS/3 ML VIAL SC PRN ×2 (04:23)
[2019-03-06] MEDS ORDERED: Dextrose 5% in Water 1,000 ML IV PRN (04:23)
[2019-03-06] MEDS ORDERED: Ondansetron ODT 4 MG TAB PO PRN (04:23)
[2019-03-06] MEDS ORDERED: Bacteriostatic Water 30 ML VIAL FS PRN (04:36)
[2019-03-06] MEDS: methylPREDNISolone Sod Succ 40 MG VIAL IVP SCH ×2 (05:53→13:40)
--- NOTE | 2019-03-06 05:59 | HP ---
PRIMARY CARE PROVIDER: Dr. Camacho. CHIEF COMPLAINT: Shortness of breath. HISTORY OF PRESENT ILLNESS: This is an 88-year-old female, who presented to [facility] in transfer from [facility] where the patient is current resident. long term staff noted the patient with increased respiratory distress with associated hypoxemia with O2 saturations in the 70% range. The patient with a significant history of chronic interstitial lung disease, admitted to [facility] in January 2018 for chest and back pain. The patient with a long-standing history of chronic respiratory failure with hypoxemia, on chronic oxygen therapy. The patient also with significant history of chronic interstitial lung disease as well as history of aspiration pneumonia. The patient has been a current resident of [facility] approximately 8 years with a nonambulatory status. In the emergency room, the patient underwent general evaluation including chest imaging to include plain radiographs and CT angiogram of the chest showing chronic interstitial lung disease bilaterally. CT angiogram of the chest was performed showing no evidence for acute pulmonary embolus. In the emergency room, the patient received IV Zosyn and vancomycin in addition to bronchodilator therapy with DuoNeb and intravenous normal saline. The patient continued to show evidence of hypoxemia in the emergency room and was placed on BiPAP noninvasive mechanical ventilation for more optimal respiratory management. The patient continues on BiPAP noninvasive mechanical ventilation and was transferred to the intermediate care unit for further evaluation. PAST MEDICAL HISTORY: 1. Chronic hypoxic respiratory failure with chronic oxygen supplementation. 2. Chronic interstitial lung disease. 3. History of aspiration pneumonia. 4. Dunbar's palsy. 5. Hypertension. 6. Osteoarthritis. 7. History of multi drug resistant E coli urinary tract infection. 8. Diabetes mellitus type 2. 9. Gastroesophageal reflux disease. 10. Glaucoma. 11. Nonambulatory status. 12. History of dysphagia status post CVA. PAST SURGICAL HISTORY: 1. Status post cholecystectomy. 2. Status post bladder suspension. CURRENT MEDICATIONS: 1. Tylenol No.3 one tablet p.o. t.i.d. p.r.n. 2. Alendronate 35 mg p.o. q.weekly. 3. Vitamin C 500 mg p.o. daily. 4. Aspirin 81 mg p.o. daily. 5. Lipitor 10 mg p.o. daily. 6. Cranberry extract 30 mL p.o. daily. 7. Vitamin B12 1000 mcg p.o. daily. 8. Diltiazem extended release 180 mg p.o. daily. 9. Vitamin D2 41572 units p.o. q.7 days. 10. Estradiol 1 g vaginally 3 times per week. 11. Ferrous sulfate 325 mg p.o. daily. 12. Xalatan 0.005% one drop to each eye at bedtime. 13. Lorazepam 0.25 mg p.o. b.i.d. 14. Metformin 500 mg p.o. b.i.d. 15. Ditropan 5 mg p.o. daily. 16. Protonix 40 mg p.o. daily. ALLERGIES: NO KNOWN DRUG ALLERGIES. FAMILY HISTORY: Positive for diabetes in multiple family members. SOCIAL HISTORY: The patient resides at [facility] x8 years. No current alcohol, tobacco, or illicit drug use. Mobilizes in a wheelchair. Daughter is medical power of estate planning attorney. REVIEW OF SYSTEMS: Unobtainable as the patient is noninvasive mechanical ventilation with BiPAP. PHYSICAL EXAMINATION: VITAL SIGNS: On admission, blood pressure 139/64, pulse 98, respiratory rate 24, temperature 98.6 degrees Fahrenheit, O2 saturation 95% on 30% FiO2 with BiPAP noninvasive mechanical ventilation. GENERAL APPEARANCE: This is an 88-year-old female, somnolent, on current BiPAP noninvasive mechanical ventilation. HEENT: Pupils are equal, round, reactive to light and accommodation. Extraocular muscles are intact. No scleral icterus. No conjunctival injection. Nares patent. OP is clear. Teeth in fair repair. NECK: Supple. No cervical adenopathy. No thyromegaly. No carotid bruits. No JVD appreciated. Cervical spine with full active and passive range of motion. No meningeal signs noted. CHEST: Diminished breath sounds bilaterally with coarse breath sounds in all lung riley. CARDIOVASCULAR: S1 and S2 without noted murmur, rub, or gallop. ABDOMEN: Rounded, soft, nontender, and nondistended. Bowel sounds are positive in all 4 quadrants. There is no hepatosplenomegaly. No abdominal bruits. No rebound or guarding appreciated. EXTREMITIES: Warm and dry with fair turgor. No clubbing, cyanosis, or asymmetric edema appreciated. Pulses palpable distally at the dorsalis pedis, posterior tibial, and popliteal arteries bilaterally. Capillary refill less than 2 seconds. NEUROLOGIC: Lethargic, opens eyes briefly to name and tactile stimulation. Does not follow commands. Nonambulatory status. PERTINENT LABORATORY DATA AND X-RAY FINDINGS: Sodium 131, potassium 4.2, chloride 91, CO2 of 32, BUN 13, creatinine 0.61, estimated GFR greater than 90, glucose 126, lactic acid level 1.2, calcium 9.7. LFTs within normal limits. BNP 371, previously noted 135 on 01/14/2018. CBC showed a white blood cell count of 8.4, hemoglobin 12, hematocrit 36, MCV 99, platelet count 262 with 90% neutrophilia. Urinalysis showed positive nitrite, trace leukocyte esterase with 4+ bacteria. Influenza A and B antigen dated 03/05/2019, negative. Portable chest x-ray dated 03/05/2019, showed chronic interstitial lung disease bilaterally. No large pleural effusions noted. CT angiogram of the chest showed no acute pulmonary embolus. Chronic changes on bilateral lung riley as noted previously. EKG dated 03/05/2019, by my interpretation shows atrial fibrillation with premature ventricular complexes. Left axis deviation noted. No acute ST-T wave changes appreciated. ASSESSMENT AND PLAN: 1. Acute on chronic hypoxemic respiratory failure. The patient will be admitted to the intermediate care unit. Suspect multifactorial process including mild pulmonary edema and chronic interstitial lung disease. We will continue general pulmonary supportive management as outlined below. 2. Chronic interstitial lung disease. Appears to be end-stage process. Currently requiring BiPAP noninvasive mechanical ventilation. We will attempt to wean off the BiPAP noninvasive mechanical ventilation in the next 24 to 48 hours. We will consult Pulmonology Service for any further recommendations. 3. Hyponatremia. Appears chronic after review of electronic medical record. We will continue to monitor serial sodium values as the patient clinically stabilizes. 4. Urinary tract infection. Suspected after review of the initial urinalysis. Await final urine culture results. Continue Levaquin 750 mg IV q.24 hours. 5. Diabetes mellitus type 2. Insulin sliding scale for reflexive coverage. ADA diet. 6. Nonambulatory status. General fall risk precautions. 7. Prophylaxis. SCDs while in bed. Pepcid 20 mg p.o. b.i.d. 8. Code status is full. Surrogate medical decision maker is patient's daughter. Job ID: [id number]
[2019-03-06] MEDS ORDERED: Vancomycin HCl 1 GM in Premix Bag 1 BAG IVPB SCH (08:00)
--- NOTE | 2019-03-06 08:06 | CT ---
Emergent after hours CT angiogram thorax with IV contrast History: Chest pain and tachycardia Comparison: 02/22/2018. Impression: 1. No CT evidence for pulmonary embolus. 2. Interstitial and alveolar opacities bilaterally which may be attributable to multifocal pneumonia. Follow-up to complete resolution is recommended. 3. Chronic interstitial lung changes with peripheral honeycombing predominantly in a basilar distribu tion and greater on the right similar to prior exam. Bronchiectasis is also again present predominant ly on the right. 4. Small right pleural effusion. 5. Atherosclerotic calcifications and plaque in the thoracic aorta. 6. Mildly prominent mediastinal lymph nodes largest measuring 10 mm in short axis dimension which are likely reactive in origin. 7. Healing right anterior third rib fracture. 8. Findings are in agreement with preliminary report by virtual radiology.
[2019-03-06] MEDS ORDERED: Piperacillin/Tazobactam 3.375 GM in Sodium Chloride 0.9% 100 ML IVPB SCH (09:00)
[2019-03-06] MEDS: Lorazepam 0.5 MG TAB PO SCH ×2 (09:23→20:41)
[2019-03-06] MEDS: Loratadine 10 MG TAB PO SCH (09:24)
[2019-03-06] MEDS: Famotidine 20 MG TAB PO SCH (09:24)
[2019-03-06] MEDS: Ferrous Sulfate 325 MG TAB PO SCH (09:27)
[2019-03-06] MEDS: Oxybutynin 5 MG TAB PO SCH (09:28)
[2019-03-06] MEDS: Multivit, Therapeutic 1 TAB PO SCH (09:28)
[2019-03-06] MEDS: Cyanocobalamin (Vitamin B-12) 1,000 MCG TAB PO SCH (09:28)
[2019-03-06] MEDS: Sucralfate 1 GM TAB PO SCH ×4 (09:29→20:42)
[2019-03-06] MEDS: Aspirin 81 mg Enteric Coated Tablet PO SCH (09:29)
[2019-03-06] MEDS: Magnesium Oxide 250 MG TAB PO SCH ×2 (09:29→20:41)
[2019-03-06] MEDS ORDERED: ISOVUE-370 76%-LOCM 1 ML ONE (13:41)
--- NOTE | 2019-03-06 14:20 | PDOC.EVN ---
Event Note - Event Note Event Note: Patient examined. Still a little sob. Velcro like rales throughout, worse at bases. CT reveals severe "honeycombing" of the lungs especially at bases. Continue steroids, nebs, oxygen and abx.
[2019-03-06] MEDS ORDERED: Furosemide 40 MG/4 ML VIAL SLOW IVP SCH (15:00)
[2019-03-06] MEDS: Latanoprost 0.005% Ophth Soln 2.5 ml Bottle EA EYE SCH (20:40)
[2019-03-06] MEDS: guaiFENesin ER 600 MG TAB PO SCH (20:41)
--- NOTE | 2019-03-06 20:56 | CON ---
DATE OF CONSULTATION: 03/06/2019 SERVICE: Pulmonary Medicine. REASON FOR CONSULT: Respiratory failure. HISTORY OF PRESENT ILLNESS: The patient is an 88-year-old female with past medical history significant for bronchiectasis. She likes using cough suppressants. She does not like doing her physiotherapy. I have counseled her multiple times to stop these habits, but she always gets back in the way of avoiding her physiotherapy and using cough suppressing medications. She also has a known history of diastolic heart failure and atrial fibrillation, has a tendency of getting volume up from time to time. She presented to the emergency department in the [facility] of March 06, 2019 with complaints of increasing shortness of breath. Nursing staff noticed that she was hypoxemic. She was brought to the emergency department. There was concern for heart failure. Overnight, she was put on some broad-spectrum antibiotics and underwent a CTA of the chest. It once again showed bilateral pleural effusions that have come and gone previously without any intervention. She had diffuse crazy paving/ground-glass opacification with interstitial fullness, which has also come and gone in the past without steroid therapy suggesting that this is water related. She was placed in the ICU overnight and required intermittent BiPAP. She currently denies any fevers or chills. She does have orthopnea and paroxysmal nocturnal dyspnea. She is not having any chest discomfort, nausea, vomiting, or diarrhea. Otherwise, she is in her usual state of health. She does not note any sick contacts recently. PAST MEDICAL HISTORY: 1. Chronic hypoxic respiratory failure. 2. Bronchiectasis, with medical noncompliance. 3. Oropharyngeal dysphagia. 4. Dunbar palsy. 5. Hypertension. 6. Dyslipidemia. 7. Type 2 diabetes mellitus. 8. Osteoarthritis. 9. Gastroesophageal reflux disease. 10. Glaucoma. 11. Chronic diastolic heart failure. 12. Paroxysmal atrial fibrillation. 13. History of CVA. PAST SURGICAL HISTORY: 1. Cholecystectomy. 2. Bladder suspension surgery. ALLERGIES: NO KNOWN DRUG ALLERGIES. MEDICATIONS: List of her inpatient medications was reviewed. Multiple updates were made at this time. FAMILY HISTORY: Noncontributory. SOCIAL HISTORY: She lives at [facility] for the last 8 years and is non ambulatory. She gets around in a wheelchair. She does not have the ability to get out of bed and into a wheelchair on her own and requires 1-to 2-person assist. Her family members are quite attentive and have visited with me in the outpatient setting on multiple occasions. REVIEW OF SYSTEMS: General, head, ears, eyes, nose, throat, cardiovascular, respiratory, GI, , musculoskeletal, neurologic, and skin are negative except as mentioned in the HPI. PHYSICAL EXAMINATION: VITAL SIGNS: Afebrile, pulse 113, blood pressure 149/89, respirations 32, saturation 87% on 2 L nasal cannula. GENERAL: The patient is awake and alert. She is in mild respiratory distress. HEENT: Normocephalic and atraumatic. Sclerae are white. Conjunctivae are pink. Oral mucosa is moist without lesions. LUNGS: Extensive rhonchi and crackles are present. There is no prolonged expiratory phase. I do not appreciate any wheezing. HEART: Normal rate, regular. ABDOMEN: Soft, nontender, nondistended. Bowel sounds are positive. MUSCULOSKELETAL: No cyanosis or clubbing. There is no pitting in the bilateral lower extremities. NEUROLOGIC: Grossly nonfocal. LABORATORY DATA: CBC is completely unremarkable. Neutrophil count is 91%. Basic metabolic profile and liver function studies are essentially unremarkable. BNP is close to her historic high. Troponin is negative x1, lactate 1.22, glucose 156. Urinalysis is unremarkable. Nitrites are positive, but there is no significant pyuria present. Blood cultures x2, urine culture, and influenza A and B are unremarkable. ASSESSMENT: 1. Acute on chronic hypoxic respiratory failure. 2. Acute on chronic diastolic heart failure. 3. Atrial fibrillation, paroxysmal. 4. Bronchiectasis with acute exacerbation. 5. Interstitial lung disease that comes and goes and is likely paper sales representative of fluid overload state superimposed on top of true interstitial changes/pulmonary fibrosis. 6. Aspiration related lung disease. 7. Hyponatremia. DISCUSSION AND PLAN: I will start diuresing the patient to get her closer to euvolemia. All CT changes that have come and gone previously responded to diuretics. She has bilateral pleural effusions that are simple, as well as interstitial fullness and ground-glass opacification (crazy paving), all consistent with volume overload. I cannot prove there is not an infectious component here , so I think that antibiotics are certainly indicated. We will initiate physiotherapy. All cough suppressants will be interrupted. Pulmonary/Critical Care will continue to follow along. She will need to remain in the ICU until she can go 12-18 hours off BiPAP. 70 minutes have been devoted to this patient in various activities. I personally reviewed all imaging studies and laboratory data noted within this document. For fifty percent of this time, I was interacting with the patient at the bedside or coordinating care with the care team. For the remainder of the time I was immediately available to the patient in the hospital unit. Job ID: [id number] MTDD
[2019-03-06] MEDS ORDERED: Estradiol 0.01% Vaginal Cream 42.5 gm Tube VAG SCH (21:00)
[2019-03-07 05:16] LABS: Band 11 % (5-11); Hemoglobin 10.9 g/dL (12.0-16.0); Lymphocytes 2 % (21-51); MDiff Complete? YES; Mean Corpuscular HGB CONC 32.9 g/dL (32.0-36.0); Mean Corpuscular Hemoglobin 32.6 pg (27.0-31.0); Mean Corpuscular Volume 99.1 fL (78.0-98.0); Mean Platelet Volume 7.8 fL (7.4-10.4); Monocytes 8 % (0-10); Neutrophil 79 % (42-75); Platelet Count 284 thou/uL (130-400); Platelet Morphology Comment Appears Adequate; RBC Distribution Width 12.8 % (11.5-14.5); Red Blood Cell (RBC) Count 3.35 mill/uL (4.20-5.40); White Blood Cell (WBC) Count 11.5 thou/uL (4.8-10.8)
[2019-03-07 05:29] LABS: Anion Gap 14 mmol/L (10-20); BUN (Urea Nitrogen) 15 mg/dL (9.8-20.1); Calc. Creatinine Clearance 63 mL/min (70-130); Calcium 8.5 mg/dL (7.8-10.44); Carbon Dioxide 25 mmol/L (23-31); Chloride 94 mmol/L (98-107); Estimated GFR-MDRD Greater than 90; Glucose 130 mg/dL (83-110); Magnesium 2.5 mg/dL (1.6-2.6); Phosphorus 2.5 mg/dL (2.3-4.7); Sodium 129 mmol/L (136-145)
[2019-03-07] MEDS: Sucralfate 1 GM TAB PO SCH ×4 (09:12→20:32)
[2019-03-07] MEDS: Oxybutynin 5 MG TAB PO SCH (09:12)
[2019-03-07] MEDS: guaiFENesin ER 600 MG TAB PO SCH ×2 (09:13→20:32)
[2019-03-07] MEDS: Loratadine 10 MG TAB PO SCH (09:13)
[2019-03-07] MEDS: Aspirin 81 mg Enteric Coated Tablet PO SCH (09:14)
[2019-03-07] MEDS: Lorazepam 0.5 MG TAB PO SCH ×2 (09:17→20:33)
[2019-03-07] MEDS: Famotidine 20 MG TAB PO SCH (09:18)
[2019-03-07] MEDS: predniSONE 20 MG TAB PO SCH (09:18)
[2019-03-07] MEDS: Ferrous Sulfate 325 MG TAB PO SCH (09:18)
[2019-03-07] MEDS: Multivit, Therapeutic 1 TAB PO SCH (09:18)
[2019-03-07] MEDS: Cyanocobalamin (Vitamin B-12) 1,000 MCG TAB PO SCH (09:19)
[2019-03-07] MEDS: Furosemide 40 MG/4 ML VIAL SLOW IVP SCH (09:19)
[2019-03-07] MEDS: Magnesium Oxide 250 MG TAB PO SCH ×2 (09:19→20:32)
--- NOTE | 2019-03-07 09:38 | PDOC.PN ---
- Subjective Encounter Start Date: 03/07/19 Encounter Start Time: 11:10 Subjective: Patient without much improvement. Poor cough. Tires out off Bipap for more -: than 15 minutes. Currently on high flow O2 trying to eat and then plan to -: go back on. - Objective Resuscitation Status - Order Detail: 03/06/19 04:10 Resuscitation Status Routine Resuscitation Status: FULL: Full Resuscitation MAR Reviewed: Yes Vital Signs & Weight: Vital Signs (12 hours) Temp Pulse Resp Pulse Ox 03/07/19 09:05 96 03/07/19 08:00 97.9 F 03/07/19 06:56 82 28 H 03/07/19 04:01 97.8 F 03/07/19 00:11 74 03/07/19 00:00 98 F Weight Weight 123 lb 8 oz Most Recent Monitor Data Heart Rate from ECG 100 NIBP 143/80 NIBP BP-Mean 101 Respiration from ECG 33 SpO2 98 I&O: 03/06/19 03/07/19 03/08/19 06:59 06:59 06:59 Intake Total 750 1060 Output Total 1025 Balance 750 35 Result Diagrams: 03/07/19 04:10 03/07/19 04:10 Additional Labs: Accuchecks 03/06/19 03/06/19 03/06/19 20:46 15:27 11:04 POC Glucose 159 H 170 H 156 H Phys Exam - Physical Examination mild respiratory distress on high flow O2 HEENT: moist MMs bilateral dry crackles and rhonchi Cardiovascular: RRR Gastrointestinal: soft, positive bowel sounds Neurological: non-focal, moves all 4 limbs Psychiatric: normal affect, A&O x 3 Dx/Plan (1) Acute and chronic respiratory failure with hypoxia Code(s): J96.21 - ACUTE AND CHRONIC RESPIRATORY FAILURE WITH HYPOXIA Status: Acute Comment: trying to wean off Bipap (2) Acute on chronic diastolic (congestive) heart failure Code(s): I50.33 - ACUTE ON CHRONIC DIASTOLIC (CONGESTIVE) HEART FAILURE Status : Acute Comment: diuresing with IV lasix (3) Afib Code(s): I48.91 - UNSPECIFIED ATRIAL FIBRILLATION Status: Chronic Qualifiers: Comment: not a candidate for anticoagulants due to age/risk of falls, rate around 100 (4) Hyponatremia Code(s): E87.1 - HYPO-OSMOLALITY AND HYPONATREMIA Status: Chronic Comment: stable (5) Bronchiectasis with (acute) exacerbation Status: Acute - Plan cont current plan of care, continue antibiotics, respiratory therapy, DVT proph w/SCDs * . - Discharge Day Encounter end time: 11:20
--- NOTE | 2019-03-07 11:50 | PRG ---
DATE OF SERVICE: 03/07/2019 SERVICE: Pulmonary Medicine. INTERVAL HISTORY: The patient is doing poorly from respiratory standpoint. She has significant amounts of sputum down in her chest. She is not strong enough to cough it out even with physiotherapy. She denies any current fevers or chills. There were no significant overnight events. She wore BiPAP last night. Every time she takes it off, within 15 minutes or so, she decompensates a little bit and has to go back on. It really does not take much support in order to make her comfortable. PHYSICAL EXAMINATION: VITAL SIGNS: Afebrile last night. Pulse 107, blood pressure 144/71, respirations 18 and saturation 96% on room air. GENERAL: The patient is awake and alert, in no apparent distress. LUNGS: Excellent air entry. There is rhonchi present. No prolonged expiratory phase. There is no wheezing. Crackles are also extensive. HEART: Normal rate, regular. ABDOMEN: Soft, nontender, nondistended. Bowel sounds are positive. MUSCULOSKELETAL: No cyanosis or clubbing. No pitting in the bilateral lower extremities. NEUROLOGIC: Grossly nonfocal. LABORATORY DATA: WBC 11.5, hemoglobin 10.9, platelets 284,000. Neutrophils are 79% on top of 11% bands. Sodium 129 and downtrending, basic metabolic profile is otherwise unremarkable. Magnesium 2.5, phosphorus 2.5. Urinalysis is positive for nitrites, but there are no significant white blood cells. There is likely a contaminant secondary to a urine specimen and that is not clean. That being said, urine cultures growing E coli which is likely false positive. Blood cultures x2 remain negative. ASSESSMENT: 1. Acute on chronic hypoxic respiratory failure. 2. Acute on chronic diastolic heart failure. 3. Atrial fibrillation, paroxysmal. 4. Bronchiectasis with acute exacerbation. 5. Interstitial lung disease, likely quality assurance representative of fluid overload state superimposed on top of true idiopathic pulmonary fibrosis. 6. Aspiration related lung disease. 7. Hyponatremia. DISCUSSION AND PLAN: We will continue to diurese the patient down to euvolemia. I will try her on high-flow nasal cannula to see if this liberates her from the BiPAP. I will continue her physiotherapy, antibiotics, nebulized medications, and steroids. Of note, her cough is not strong enough to liberate the sputum and she has been essentially dependent on BiPAP for the past 2 days. Things will likely get worse before they improve, and the patient does not have room or reserve for that. Since she is a DNAR, we do not have the option of intubating her. As such, if she further decompensates, she will likely be passing away during this hospital stay. That being said, I do believe the patient is right at the end of her life. Even under best of circumstances. She likely has less than 6 months to live at this point, particularly since she is able to get stronger. Job ID: [id number] [facility]
[2019-03-07] MEDS: Acetaminophen 500 MG TAB PO PRN ×2 (12:47→18:25)
[2019-03-07 16:01] VITALS: BP 143/73
[2019-03-07] MEDS: Latanoprost 0.005% Ophth Soln 2.5 ml Bottle EA EYE SCH (20:33)
[2019-03-08 05:16] LABS: Anion Gap 13 mmol/L (10-20); BUN (Urea Nitrogen) 20 mg/dL (9.8-20.1); Calc. Creatinine Clearance 59 mL/min (70-130); Calcium 8.7 mg/dL (7.8-10.44); Carbon Dioxide 31 mmol/L (23-31); Chloride 86 mmol/L (98-107); Estimated GFR-MDRD Greater than 90; Glucose 118 mg/dL (83-110); Potassium 4.1 mmol/L (3.5-5.1); Sodium 126 mmol/L (136-145)
[2019-03-08 05:20] LABS: Band 12 % (5-11); Hemoglobin 12.2 g/dL (12.0-16.0); Lymphocytes 5 % (21-51); MDiff Complete? YES; Mean Corpuscular HGB CONC 32.7 g/dL (32.0-36.0); Mean Corpuscular Hemoglobin 32.7 pg (27.0-31.0); Mean Corpuscular Volume 99.8 fL (78.0-98.0); Mean Platelet Volume 7.9 fL (7.4-10.4); Monocytes 4 % (0-10); Neutrophil 79 % (42-75); Platelet Count 323 thou/uL (130-400); RBC Distribution Width 12.7 % (11.5-14.5); Red Blood Cell (RBC) Count 3.73 mill/uL (4.20-5.40); White Blood Cell (WBC) Count 12.3 thou/uL (4.8-10.8)
[2019-03-08] MEDS: Morphine 4 MG/ML VIAL SLOW IVP PRN ×4 (06:25→20:49)
--- NOTE | 2019-03-08 08:36 | PDOC.PN ---
- Subjective Encounter Start Date: 03/08/19 Encounter Start Time: 09:10 Subjective: Patient back on Bipap, hasn't been able to tolerate being off it and -: now struggling to breath even on it. Family can't understand things -: she says. Doesn't like the mask. - Objective Resuscitation Status - Order Detail: 03/07/19 14:48 Resuscitation Status Routine Resuscitation Status: DNAR: NO Resuscitation Discussed with: Patient and family MAR Reviewed: Yes Vital Signs & Weight: Vital Signs (12 hours) Temp Pulse Resp Pulse Ox 03/08/19 08:02 108 H 03/08/19 07:56 107 H 30 H 86 L 03/08/19 04:00 91 L 03/08/19 03:42 98.8 F 03/08/19 02:09 75 03/07/19 23:53 98.8 F Weight Weight 123 lb 8 oz Most Recent Monitor Data Heart Rate from ECG 94 NIBP 150/83 NIBP BP-Mean 105 Respiration from ECG 16 SpO2 89 I&O: 03/07/19 03/08/19 03/09/19 06:59 06:59 06:59 Intake Total 1060 480 Output Total 1025 800 Balance 35 -320 Result Diagrams: 03/08/19 04:11 03/08/19 04:11 Additional Labs: Accuchecks 03/08/19 03/07/19 03/07/19 05:29 23:16 16:39 POC Glucose 129 H 141 H 153 H 03/07/19 10:31 POC Glucose 128 H Phys Exam - Physical Examination moderate respiratory distress on Bipap bilateral dry crackles, increased WOB Cardiovascular: RRR Gastrointestinal: soft, positive bowel sounds Neurological: non-focal, moves all 4 limbs Deviation from normal: alert, trying to talk but family can't understand Dx/Plan (1) Acute and chronic respiratory failure with hypoxia Code(s): J96.21 - ACUTE AND CHRONIC RESPIRATORY FAILURE WITH HYPOXIA Status: Acute Comment: decompensating further (2) Acute on chronic diastolic (congestive) heart failure Code(s): I50.33 - ACUTE ON CHRONIC DIASTOLIC (CONGESTIVE) HEART FAILURE Status : Acute Comment: diuresing with IV lasix (3) Afib Code(s): I48.91 - UNSPECIFIED ATRIAL FIBRILLATION Status: Chronic Qualifiers: Comment: not a candidate for anticoagulants due to age/risk of falls, rate around 100 (4) Hyponatremia Code(s): E87.1 - HYPO-OSMOLALITY AND HYPONATREMIA Status: Chronic Comment: stable (5) Bronchiectasis with (acute) exacerbation Status: Acute - Plan cont current plan of care, PT/OT, DVT proph w/SCDs Patient appears to be declining and will soon. Family awaiting rest of -: family members to arrive tonight and will likely transition to comfort -: care at that time. * . - Discharge Day Encounter end time: 09:20
[2019-03-08] MEDS: Sucralfate 1 GM TAB PO SCH ×3 (11:01→20:12)
[2019-03-08] MEDS: predniSONE 20 MG TAB PO SCH (11:02)
[2019-03-08] MEDS: Cyanocobalamin (Vitamin B-12) 1,000 MCG TAB PO SCH (11:08)
[2019-03-08] MEDS: Aspirin 81 mg Enteric Coated Tablet PO SCH (11:08)
[2019-03-08] MEDS: Loratadine 10 MG TAB PO SCH (11:09)
[2019-03-08] MEDS: Magnesium Oxide 250 MG TAB PO SCH ×2 (11:09→20:11)
[2019-03-08] MEDS: guaiFENesin ER 600 MG TAB PO SCH ×2 (11:09→20:12)
[2019-03-08] MEDS: Ferrous Sulfate 325 MG TAB PO SCH (11:09)
[2019-03-08] MEDS: Famotidine 20 MG TAB PO SCH (11:09)
[2019-03-08] MEDS: Furosemide 40 MG/4 ML VIAL SLOW IVP SCH (11:10)
[2019-03-08] MEDS: Multivit, Therapeutic 1 TAB PO SCH (11:10)
[2019-03-08] MEDS: Oxybutynin 5 MG TAB PO SCH (11:10)
[2019-03-08] MEDS: Lorazepam 0.5 MG TAB PO SCH (11:13)
--- NOTE | 2019-03-08 12:36 | PRG ---
DATE OF SERVICE: 03/08/2019 SERVICE: Pulmonary Medicine. INTERVAL HISTORY: The patient is doing very poorly overnight. She had a respiratory event this morning. She ended up going up on her oxygen requirements. She is back on BiPAP this morning. She got a couple of doses of Ativan for air hunger overnight. Family is at bedside this morning. They do appreciate that after being on BiPAP for about 3 days, the likelihood that she is going to make recovery from this point, especially without intubation is essentially non-existent. The patient has previously been very adamant that she not be placed on a ventilator. As such, we are likely going to be transitioned over to comfort care today. We will continue our supportive care for the time being, however, so that some family members can get here. PHYSICAL EXAMINATION: VITAL SIGNS: Currently, afebrile. Pulse 100, blood pressure 124/89, respirations 38, and saturation 95% on 100% FiO2 delivered via BiPAP at 17/4. HEENT: Normocephalic and atraumatic. Sclerae white. Conjunctivae pink. Oral mucosa is moist without lesions. LUNGS: Decent air entry. Extensive rhonchi are present. There are some dependent crackles noted. HEART: Normal rate and regular. ABDOMEN: Soft, nontender, and nondistended. Bowel sounds are positive. MUSCULOSKELETAL: No cyanosis or clubbing. No pitting in the bilateral lower extremities. NEUROLOGIC: Grossly nonfocal. LABORATORY DATA: WBC 12.3, hemoglobin 12.2, platelets 323,000. Neutrophil count is 79% on top of 12% bands. Sodium 126, continuing to trend downward. Basic metabolic profile is otherwise unremarkable. Urinalysis is negative. Urine culture is growing E. coli, but this was likely a contaminant given that the urinalysis was really quite bland. ASSESSMENT: 1. Acute on chronic hypoxic respiratory failure. 2. Bronchiectasis with acute exacerbation. 3. Interstitial lung disease/pulmonary fibrosis, with superimposed volume overload state. 4. Acute on chronic diastolic heart failure. 5. Atrial fibrillation, paroxysmal. 6. End-stage aspiration related lung disease. 7. Deconditioning, profound. DISCUSSION AND PLAN: The patient is doing extremely poorly from respiratory standpoint. At this point, the likelihood of a meaningful recovery is extraordinarily low. Furthermore, where we to intubate her, she would not ever liberate from mechanical ventilation and would likely be dependent on tracheostomy. She has been very clear with me both in clinic and with family members that she would not want intubation. As such, at this point, we really do not have any options other than to proceed with comfort measures only. The family would like for us to postpone at official transition until some family members arrive to say their goodbyes. They understand that she could have an event between now and then. If that occurs, they have said that we are not to do any chest compressions or put a tube down her throat. We will continue our supportive measures for the time being. is expected during this hospital stay. Job ID: [id number] MTDD
--- NOTE | 2019-03-08 14:41 | PQF ---
OSEAS ARANA RYAN MD [id number] [facility] [id number] CLINICAL DOCUMENTATION IMPROVEMENT CLARIFICATION FORM: ICD-10 Updated PLEASE DO AN ADDENDUM TO THE PROGRESS NOTE WITH ANY DOCUMENTATION UPDATES OR ADDITIONS AND CARRY THROUGH TO DC SUMMARY. THANK YOU. DATE: 03/08/19 ATTN: Dr. Panchal Please exercise your independent, professional judgment in responding to the clarification form. Clinical indicators are provided on the bottom of this form for your review Please check appropriate box(es): [ ] Severe Sepsis with organ failure of acute hypoxic respiratory failure due to: UTI [ ] Sepsis due to UTI [ ] Localized infection without sepsis [ ] Other diagnosis [ X ] Unable to determine In addition, please specify: Present on Admission (POA): [ ] Yes [ ] No [ X ] Unable to determine For continuity of documentation, please document condition throughout progress notes and discharge summary. Thank You. CLINICAL INDICATORS - SIGNS / SYMPTOMS / LABS Respiratory rate >20/min, Hypoxemia--> 03/06 Resp up to 32 per VS; 95% o2 sat onBipap 30% per H&P WBC count (>12,000/mm^4 or <4000/mm^3 or 10% neuts, 10% bands)--> 90% neutros lab Pulse 110 on 03/06 VS UTI per H&P acute organ failure--> acute on chronic hypoxemic respiratory failure per H&P RISK FACTORS UTI H&P Advancing Age 88 yof H&P TREATMENTS: ICU 03/06 orders Daily CBC 03/06 to date orders Blood cultures 03/06 orders IV antibiotics - broad spectrum--> 03/06 Zosyn IV x1; 03/06 to date Levaquin IV per MAR (This form is maintained as a part of the permanent medical record) 2014 [employer]. All Rights Reserved Sonia Wiess RN, BSN, [email or web address] [email or web address] [phone] MTDD
[2019-03-08 15:48] VITALS: TEMP 97.8
[2019-03-08] MEDS ORDERED: Morphine 4 MG/ML VIAL SLOW IVP PRN (16:45)
[2019-03-08] MEDS ORDERED: Lorazepam 2 MG/ML VIAL SLOW IVP PRN ×2 (16:45→19:51)
[2019-03-08] MEDS ORDERED: Morphine 4 MG/ML VIAL ONE ×2 (16:47→18:01)
[2019-03-08] MEDS ORDERED: Lorazepam 2 MG/ML VIAL ONE ×2 (16:47→18:01)
[2019-03-08] MEDS: Latanoprost 0.005% Ophth Soln 2.5 ml Bottle EA EYE SCH (21:04)
--- NOTE | 2019-03-09 15:35 | EKG ---
Test Reason : ER INDICATION Blood Pressure : / mmHG Vent. Rate : 083 BPM Atrial Rate : 122 BPM P-R Int : 000 ms QRS Dur : 100 ms QT Int : 336 ms P-R-T Axes : 000 -34 110 degrees QTc Int : 394 ms Atrial fibrillation with premature ventricular or aberrantly conducted complexes Left axis deviation Abnormal QRS-T angle, consider primary T wave abnormality Abnormal ECG Confirmed by RONEY CASTILLO ([id number]), science editor BURTON NEAL ([id number]) on 03/09/2019 3:35:17 PM Referred By: Confirmed By:RONEY CASTILLO
--- NOTE | 2019-03-11 13:37 | DIS ---
DATE OF ADMISSION: 03/06/2019 DATE OF DISCHARGE: 03/08/2019 SUMMARY: PRIMARY CARE PHYSICIAN: Dr. Duarte. REASON FOR ADMISSION: Acute on chronic hypoxic respiratory failure. CAUSE OF : Acute exacerbation of diastolic congestive heart failure. CONTRIBUTING CAUSES OF : Bronchiectasis with acute exacerbation and aspiration-related lung disease and diabetes mellitus type 2 and chronic interstitial lung disease. CONSULTATIONS: Pulmonology, Dr. Rodriguez. SUMMARY OF HOSPITAL COURSE: This was an 88-year-old female with a known history of chronic hypoxic respiratory failure due to congestive heart failure, interstitial lung disease, previous aspiration pneumonia, and bronchiectasis. [facility] with shortness of breath and drops in her O2 sats to the 70s on her baseline oxygen. She had a CT of the chest in the emergency room showing chronic interstitial lung disease bilaterally, but no pulmonary embolism. She was placed on BiPAP and was treated in the hospital. She was given diuretics to try and improve her respiratory status. The patient did not improve with treatment. Her respiratory status further declined. At this time, Dr. Rodriguez spoke with the patient and the family about her decline in status and impending respiratory failure and that she would not likely have the strength to come off the ventilator should she be intubated at this time, the family decided to make her DNR, and once all the family got there, they instituted comfort care measures. The patient at 22:10 on 03/08/2019, and her body was discharged to the home. Job ID: [id number]
--- NOTE | 2019-03-14 14:00 | PQF ---
OSEAS ARANA, DONNA WEST MD [id number] [facility]- [facility] [id number] CLINICAL DOCUMENTATION CLARIFICATION FORM: POST DISCHARGE Addendum to original discharge summary date: ____ Late entry note date: __ DATE: 03/14/19 ATTN: Dr. Panchal, Please exercise your independent, professional judgment in responding to the clarification form. Clinical indicators are provided on the bottom of this form for your review Please check appropriate box(s) to clarify if the following diagnosis has been ruled in or ruled out: Pneumonia [ ] Ruled in diagnosis [ ] Continue to treat [ ] Resolved [ ] Ruled out diagnosis [ ] Cannot rule out diagnosis [ ] Other diagnosis [ X ] Unable to determine In addition, please specify: Present on Admission (POA): [ X ] Yes [ ] No [ ] Unable to determine For continuity of documentation, please document condition throughout progress notes and discharge summary. Thank You. CLINICAL INDICATORS - SIGNS / SYMPTOMS / LABS Pneumonia--03/06 ED physician note Severe extensive multifocal bilateral pneumonia, underlying fibosis and bronchiectasis--03/06 CAT scan addendum RISK FACTORS History of Aspiration pneumonia--03/06 H&P Chronic hypoxic respiratory failure--03/06 H&P Chronic insterstitial lung disease--03/06 H&P History of dysphagia; s/p CVA--03/06 H&P half-way resident--03/06 H&P Non-ambulatory status--03/06 H&P TREATMENTS CTA chest--03/06 Pulmonary consult Pulmonary consult--03/06 Broad spectrum antibiotics--IV Zosyn--03/06 consult Thank you, Mary Long, [facility] 03/14/19@1:57PM (This form is maintained as a part of the permanent medical record) 2014 [employer]. All Rights Reserved [email or web address] [phone] [facility] DIVISIONFlorina
== END 2019-03-08 22:10 | disposition expired | DRG 291 ==
LOC: ERS 18:03 → IMCU/EMU 03-06 03:56
PROVIDERS: ADMIT Family Medicine; ATTEND Family Medicine
PROC: 5A09457 Assistance with Respiratory Ventilation, 24-96 Consecutive Hours, Continuous Positive Airway Pressure (ICD-10-PCS; principal; 2019-03-06)
DX: I11.0 Hypertensive heart disease with heart failure (principal); J96.21 Acute and chronic respiratory failure with hypoxia; E87.1 Hypo-osmolality and hyponatremia; J47.1 Bronchiectasis with (acute) exacerbation; N39.0 Urinary tract infection, site not specified; I50.33 Acute on chronic diastolic (congestive) heart failure; J84.112 Idiopathic pulmonary fibrosis; Z51.5 Encounter for palliative care; Z66 Do not resuscitate; G51.0 Bell's palsy; I48.0 Paroxysmal atrial fibrillation; M19.90 Unspecified osteoarthritis, unspecified site; E11.9 Type 2 diabetes mellitus without complications; K21.9 Gastro-esophageal reflux disease without esophagitis; H40.9 Unspecified glaucoma; I69.391 Dysphagia following cerebral infarction; R13.12 Dysphagia, oropharyngeal phase; R53.81 Other malaise; J98.4 Other disorders of lung; Z99.81 Dependence on supplemental oxygen; Z87.01 Personal history of pneumonia (recurrent); Z87.440 Personal history of urinary (tract) infections; Z79.84 Long term (current) use of oral hypoglycemic drugs; Z79.899 Other long term (current) drug therapy; Z79.82 Long term (current) use of aspirin; Z83.3 Family history of diabetes mellitus; Z91.19 Patient's noncompliance with other medical treatment and regimen
CPT/HCPCS: 36415; 36416; 51701; 71045; 71275; 80048; 80053; 81003; 81015; 83605; 83735; 83880; 84100; 84484; 85007; 85025; 85027; 87040; 87077; 87086; 87186; 87804; 93005; 94640; 94660; 94667; 94668; 94760; 96361; 96365; 96366; A4353; J1940; J1956; J2060; J2270; J2543; J2920; J3370; J7512; J7620; Q9966